=== PATIENT | female | born 1975 | race African-American/Black ===

== ENCOUNTER 2016-07-18 22:20 | Inpatient (IN) | payer MEDICAID, OTHER ==
[~2016-07-18] VITALS: Ht 172.7 cm; Wt 125.3 kg
[~2016-07-18 22:20] MED LIST: ACET325 PO; CITA20 PO; COMMODE 3:1; FERR324T4 PO; FURO20 PO; HYDR-3580 PO; KCL10 PO; KCL20 PO; NEUR100C PO; PROT40TA PO; RISP1 PO; THERM PO; TRAZ100T4 PO; WALKER ROLLING; WHEELCHAIR RENTAL RA
[2016-07-18 22:24] VITALS: BP 123/81; PULSE 110; RESP 18; TEMP 98; O2SAT 85
[2016-07-18 22:44] VITALS: O2SAT 99
[2016-07-18] MEDS ORDERED: methylPREDNISolone SOD SUCC 125 MG/2 ML VIAL IVP ONE (22:45)
[2016-07-18] MEDS ORDERED: RESP: ALBUTEROL 2.5 MG/IPRATROPIUM 0.5 MG NEB (SCH) INH (22:45)
[2016-07-18] MEDS ORDERED: SODIUM CHLORIDE 0.9% FLUSH 10 ML FLUSH IVF PRN (22:45)
--- NOTE | 2016-07-18 22:46 | PD ---
HPI Chief Complaint: Respiratory Symptoms Time Seen by Provider: 22:42 Travel History International Travel<30 days: No Contact w/Intl Traveler<30days: No Traveled to known affect area: No History of Present Illness HPI 41-year-old female that presents to the ED for evaluation of shortness of breath and recent diagnosis of pneumonia. Per patient he was diagnosed with pneumonia yesterday. Patient has a history of sarcoidosis and continues to smoke. Per patient today she got more short of breath and is what made her come here. Patient states that she has no pain but very short of breath. Ambulate he makes it worse. She denies any abdominal pain. She states compliance with the medications. Per patient she was started on Levaquin and prednisone. She has not used any inhalers or nebulizers. Allergy to penicillin and tramadol. Denies any sick contacts. Patient did not get the flu shot this year. Symptoms have been ongoing for a couple of days. PFSH Past Medical History Arthritis: No Asthma: No Autoimmune Disease: Yes ( SARCOIDOSIS) Blood Disorders: No Bipolar Disorder: Yes Anxiety: No Depression: No Heart Rhythm Problems: No Cancer: No Cardiovascular Problems: Yes High Cholesterol: No Chemotherapy: No Chest Pain: No Congestive Heart Failure: Yes COPD: No Cerebrovascular Accident: Yes Diabetes: No Diminished Hearing: No Endocrine: No GERD: Yes Genitourinary: No Hepatitis: No Hiatal Hernia: No Hypertension: Yes Immune Disorder: Yes Kidney Stones: No Medical other: Yes (LUPUS) Musculoskeletal: Yes Neurologic: No Psychiatric: Yes (Bipolar disorder) Reproductive: No Respiratory: Yes (Intersititial lung disease) Immunizations Current: No Migraines: No Pneumonia: Yes Radiation Therapy: No Renal Failure: No Schizophrenia: Yes Seizures: No Sickle Cell Disease: No Sleep Apnea: No Thyroid Disease: No Ulcer: No Tetanus Vaccination: Unknown Influenza Vaccination: No ?: Not LMP: 2 WEEKS AGO : 2 Para: 2 Tubal Ligation: Yes Past Surgical History Abdominal Surgery: No AICD: No Arteriovenous Shunt: No Cardiac Surgery: No Ear Surgery: No Endocrine Surgery: No Eye Surgery: No Genitourinary Surgery: No Gynecologic Surgery: Yes (Tubal ligation) Insulin Pump: No Joint Replacement: No Oral Surgery: Yes (Tongue biopsy) Pacemaker: No Thoracic Surgery: Yes (Eight lung wedge resection 2011, Bronchospy 05/19) Other Surgery: Yes (right lung biopsy /bronchoscopy ) Social History Alcohol Use: No Tobacco Use: Yes (1PPD) Substance Use: No Allergies-Medications (Allergen,Severity, Reaction): Coded Allergies: Penicillin (Verified Allergy, Intermediate, Nausea/Vomiting, 07/18/16) Tramadol (Verified Allergy, Unknown, 07/18/16) SHAKES *MDRO Multi-Drug Resistant Organism (Verified Adverse Reaction, Unknown, ) 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 Reported Meds & Prescriptions Reported Meds & Active Scripts Active Lasix 20 Mg Tab (Furosemide) 20 Mg Tab 20 Mg PO BID@09,18 Hydrocodone/Acetaminophen 7.5 mg/325 mg 1 Tab 1 Tab PO Q6H PRN Thera M Plus (Multivitamins/Minerals Therap) 1 Tab Tab 1 Tab PO DAILY Klor-Con 10 (Potassium Chloride) 10 Meq Tab 10 Meq PO DAILY Kcl 20 Meq Tab (Potassium Chloride) 20 Meq Tabcr 20 Meq PO Q12HR Protonix (Pantoprazole Sodium) 40 Mg Tab 40 Mg PO DAILY Risperdal (Risperidone) 1 Mg Tab 3 Mg PO HS Desyrel 100 Mg Tab (Trazodone Hcl) 100 Mg Tab 100 Mg PO HS Neurontin (Gabapentin) 100 Mg Cap 200 Mg PO BID Ferrous Sulfate 325 Mg Tab 325 Mg PO BID@,17 Celexa 20 Mg Tab (Citalopram Hydrobromide) 20 Mg Tab 20 Mg PO DAILY Commode 3:1 (Device) Device 1 Ea Walker Rolling (Device) Device 1 Ea Wheelchair Rental Removable Arms (Device) Device 1 Ea Tylenol (Acetaminophen) 325 Mg Tab 650 Mg PO Q4H PRN 30 Days Review of Systems Except as stated in HPI: all other systems reviewed are Neg Physical Exam Narrative GENERAL: SKIN: Warm and dry. HEAD: Atraumatic. Normocephalic. EYES: Pupils equal and round. No scleral icterus. No injection or drainage. ENT: No nasal bleeding or discharge. Mucous membranes pink and moist. Tongue is midline. No uvula deviation. NECK: Trachea midline. No JVD. CARDIOVASCULAR: Regular rate and rhythm. No murmurs, S3, S4. RESPIRATORY: No accessory muscle use. Wheezings heard on expiratory. Breath sounds equal bilaterally. GASTROINTESTINAL: Abdomen soft, non-tender, nondistended. Hepatic and splenic margins not palpable. MUSCULOSKELETAL: Extremities without clubbing, cyanosis, or edema. No obvious deformities. Full range of motion of the upper and lower extremities bilaterally. 2+ pulses bilaterally. NEUROLOGICAL: Awake and alert. No obvious cranial nerve deficits. Motor grossly within normal limits. Five out of 5 muscle strength in the arms and legs. Normal speech. PSYCHIATRIC: Appropriate mood and affect; insight and judgment normal. Data Data Last Documented VS Vital Signs Date Time Temp Pulse Resp B/P Pulse Ox O2 Delivery O2 Flow Rate FiO2 07/18/16 22:29 26 07/18/16 22:24 98.0 110 123/81 85 Orders Arterial Blood Gas (Abg) (07/18/16 22:40) Basic Metabolic Panel (Bmp) (07/18/16 22:40) Complete Blood Count With Diff (07/18/16 22:40) Chest, Single Ap (07/18/16 22:40) Ecg Monitoring (07/18/16 22:40) Iv Access Insert/Monitor (07/18/16 22:40) Oximetry (07/18/16 22:40) Oxygen Administration (07/18/16 22:40) Methylprednisolone So Succ Inj (Solumedr (07/18/16 22:45) Duoneb Q 15 Min X 3 Doses (07/18/16 22:45) Sodium Chloride 0.9% Flush (Ns Flush) (07/18/16 22:45) Blood Culture (07/18/16 22:40) Lactic Acid (07/18/16 22:40) MDM Medical Decision Making Medical Screen Exam Complete: Yes Emergency Medical Condition: Yes Medical Record Reviewed: Yes Differential Diagnosis Sarcoidosis versus pneumonia versus COPD exacerbation versus sepsis versus dyspnea Narrative Course 41-year-old female that presents to the ED for volition or shortness of breath. Patient was properly examined and was found to have signs and symptoms consistent appears to be respiratory distress. Patient's O2 are in the 80s without oxygen. With oxygen O2 in the 90s. Patient was given breathing treatments here. Chest x-ray and labs were ordered. Patient will be signed out to my attending pending disposition. Constantin Freeman July 18, 2016 22:46
[2016-07-18 22:49] VITALS: BP 142/96; PULSE 118; RESP 34
--- NOTE | 2016-07-18 22:49 | PD ---
Physical Exam Narrative General: The patient is a well-developed well-nourished female, short of breath on arrival with audible wheezing, conversational dyspnea, O2 saturations on room air in the 70s. Head and Neck exam: Head is normocephalic atraumatic. Eyes: EOMI, pupils are equal round and reactive to light. Nose: Midline septum with pink mucous membranes Mouth: Dentition unremarkable. Moist mucus membranes. Posterior oropharynx is not erythematous. No tonsillar hypertrophy. Uvula midline. Airway patent. Neck: No palpable lymphadenopathy. No nuchal rigidity. No thyromegaly. Cardiovascular: Sinus tachycardia in the 120s without murmurs, gallops, or rubs. No pulse deficit to the extremities and simultaneous auscultation and palpation of her radial artery. Lungs: Scattered rhonchi and upper airway transmission is noted. The patient has expiratory wheezes audible anteriorly and posteriorly. The patient has conversational dyspnea. The patient has accessory muscle use. No paroxysmal abdominal breathing. Abdomen: Soft, without tenderness to palpation in all 4 quadrants of the abdomen. No guarding, rebound, or rigidity. Normal bowel sounds are audible. No tenderness on palpation of McBurney's point. Extremities: No clubbing, cyanosis, or edema. 2+ pulses in all 4 extremities. No calf tenderness on palpation. Back: No costovertebral angle tenderness to palpation. Neurologic Exam: Grossly nonfocal. Skin Exam: No rash noted. Intact skin that is warm and dry. Data Data Last Documented VS Vital Signs Date Time Temp Pulse Resp B/P Pulse Ox O2 Delivery O2 Flow Rate FiO2 07/19/16 00:18 120 18 138/81 92 Nasal Cannula 4 07/18/16 22:24 98.0 Orders Arterial Blood Gas (Abg) (07/18/16 22:40) Basic Metabolic Panel (Bmp) (07/18/16 22:40) Complete Blood Count With Diff (07/18/16 22:40) Chest, Single Ap (07/18/16 22:40) Ecg Monitoring (07/18/16 22:40) Iv Access Insert/Monitor (07/18/16 22:40) Oximetry (07/18/16 22:40) Oxygen Administration (07/18/16 22:40) Methylprednisolone So Succ Inj (Solumedr (07/18/16 22:45) Albuterol-Ipratropium Neb (Duoneb Neb) (07/18/16 22:45) Sodium Chloride 0.9% Flush (Ns Flush) (07/18/16 22:45) Blood Culture (07/18/16 22:40) Lactic Acid (07/18/16 22:40) Aztreonam Inj (Azactam Inj) (07/18/16 23:09) Azithromycin Inj (Zithromax Inj) (07/18/16 23:09) Sodium Chlor 0.9% 1000 Ml Inj (Ns 1000 M (07/18/16 23:15) Magnesium Sulfate 1 Gm Premix (Magnesium (07/18/16 23:30) Sodium Chlor 0.9% 1000 Ml Inj (Ns 1000 M (07/19/16 00:00) Albuterol Neb (Albuterol Neb) (07/19/16 00:15) Albuterol-Ipratropium Neb (Duoneb Neb) (07/19/16 04:00) Admit To Inpatient (07/19/16 ) Vital Signs (Adult) Q4H (07/19/16 00:16) Activity Oob With Assistance (07/19/16 00:16) Garment Manufacturer / Telemetry .CONTINUOUS (07/19/16 00:16) Intake + Output DAVIS.QSHIFT (07/19/16 00:16) Diet Heart Healthy (07/19/16 Breakfast) Sodium Chloride 0.9% Flush (Ns Flush) (07/19/16 00:30) Sodium Chloride 0.9% Flush (Ns Flush) (07/19/16 09:00) Basic Metabolic Panel (Bmp) (07/19/16 06:00) Complete Blood Count With Diff (07/19/16 06:00) Naloxone Inj (Narcan Inj) (07/19/16 00:30) Inpatient Certification (07/19/16 ) Admit Order (Ed Use Only) (07/19/16 00:21) Albuterol-Ipratropium Neb (Duoneb Neb) (07/19/16 04:00) Albuterol-Ipratropium Neb (Duoneb Neb) (07/19/16 00:30) Labs Laboratory Tests Test 07/18/16 07/18/16 22:45 22:49 White Blood Count 24.7 TH/MM3 Red Blood Count 5.01 MIL/MM3 Hemoglobin 13.4 GM/DL Hematocrit 41.0 % Mean Corpuscular Volume 81.8 FL Mean Corpuscular Hemoglobin 26.6 PG Mean Corpuscular Hemoglobin 32.6 % Concent Red Cell Distribution Width 16.3 % Platelet Count 446 TH/MM3 Mean Platelet Volume 8.0 FL Neutrophils (%) (Auto) 81.1 % Lymphocytes (%) (Auto) 11.2 % Monocytes (%) (Auto) 7.4 % Eosinophils (%) (Auto) 0.1 % Basophils (%) (Auto) 0.2 % Neutrophils # (Auto) 20.1 TH/MM3 Lymphocytes # (Auto) 2.8 TH/MM3 Monocytes # (Auto) 1.8 TH/MM3 Eosinophils # (Auto) 0.0 TH/MM3 Basophils # (Auto) 0.1 TH/MM3 CBC Comment AUTO DIFF Differential Total Cells 100 Counted Neutrophils % (Manual) 72 % Band Neutrophils % 6 % Lymphocytes % 12 % Monocytes % 9 % Neutrophils # (Manual) 19.5 TH/MM3 Metamyelocytes 1 % Differential Comment FINAL DIFF MANUAL Atypical Lymphocytes % Toxic Vacuolation PRESENT Platelet Estimate HIGH Platelet Morphology Comment NORMAL Red Cell Morphology Comment NORMAL Sodium Level 137 MEQ/L Potassium Level 3.8 MEQ/L Chloride Level 99 MEQ/L Carbon Dioxide Level 29.5 MEQ/L Anion Gap 9 MEQ/L Blood Urea Nitrogen 19 MG/DL Creatinine 1.63 MG/DL Estimat Glomerular Filtration 42 ML/MIN Rate Random Glucose 143 MG/DL Lactic Acid Level 2.0 mmol/L Calcium Level 8.6 MG/DL Blood Gas Puncture Site RT RADIAL Blood Gas Patient Temperature 98.6 Blood Gas HCO3 27 mmol/L Blood Gas Base Excess 1.3 mmol/L Blood Gas Oxygen Saturation 94 % Arterial Blood pH 7.29 Arterial Blood Partial 59 mmHg Pressure CO2 Arterial Blood Partial 123 mmHG Pressure O2 Arterial Blood Oxygen Content 17.5 Vol % Arterial Blood 4.7 % Carboxyhemoglobin Arterial Blood Methemoglobin 0.6 % Blood Gas Hemoglobin 13.2 G/DL Oxygen Delivery Device NASAL CANNULA Blood Gas Liter Flow 4 L/M [facility] Medical Record Reviewed: Yes Supervised Visit with JUMA: No Interpretation(s) Last Impressions Chest X-Ray 07/18/16 2240 Signed Impressions: Service Date/Time: Monday, July 18, 2016 23:11 - CONCLUSION: No significant change in the bilateral patchy pulmonary opacities. Horacio Simpson MD Differential Diagnosis Asthma exacerbation, versus pneumonia, versus new-onset congestive heart failure , versus ARDS, versus sepsis. Narrative Course During the course of the patients emergency department visit, the patients history, examination, and differential diagnosis were reviewed with the patient. The patient had IV access obtained and blood work sent for analysis. The patient was placed on a ekg monitor tech with oximetry and blood pressure monitoring. An EKG was done on arrival. The patient's EKG shows a sinus tachycardia with occasional premature ventricular contractions, no acute ST segment elevation or depression, T waves are inverted in V1, V2. The patient's initial O2 saturation on room air out in triage was in the 70s. The patient was placed on nasal cannula O2 and by the time she arrived back in the room her O2 saturation was 95%. The patient was initially evaluated by Constantin, the physician paraprofessional education assistant. Please see his complete history and physical. The patient 's case was checked out to me at the conclusion of his shift. The patient is a 41-year-old female who reports to me that she's had a history of cough, congestion, shortness of breath that began 2 days ago. She went to a local urgent care center and was given a prescription for pro-air, a cough medication , and Levaquin. She reports that she started the Levaquin yesterday. The patient reports that the shortness of breath was worsening that she came in. She reports on review of systems that she also had nausea and vomiting 4 days ago 4, diarrhea times to 4 days ago. She denies having any abdominal pain. The patient's medical history is complicated by having according to the record a history of asthma, COPD, sarcoidosis, history of respiratory failure with tracheostomy in 2016. The patient was initially provided DuoNeb nebs 3, Solu-Medrol 125 mg IV, Azactam, and azithromycin for antibiotic coverage for a suspected pulmonary source. The patients laboratory studies were reviewed and remarkable for white count 24.7, hemoglobin 13.4, platelets 446 with 72 neutrophils, 6 bands, 12 lymphocytes, monocytes 9, toxic vacuolation present. Basic metabolic profile is remarkable for BUN of 19, creatinine 1.3, glucose 143, lactic acid 2.0, ABG reveals a pH of 7.29, PCO2 59, PO2 123, carboxyhemoglobin 4.7, bicarbonate 27. Radiology studies were reviewed and remarkable for a chest x-ray that shows no significant change compared to previously with bilateral patchy pulmonary opacities noted. A second liter of normal saline IV fluids had been started on the patient, however further review of the patient's record reveals a history of a diastolic heart failure and an episode of pulmonary edema during a hospitalization previously. Therefore, the patient's second liter was stopped. The patient was reexamined and was given an albuterol nebulizer treatment for recurrent wheezing. The patients results were discussed with the patient, including the plan of care. I explained that further testing and/ or monitoring is indicated based on the patients history, examination, and/ or laboratory findings. Therefore, I recommended admission for additional evaluation. The patient expressed understanding and was agreeable with this plan. The patient was admitted to the hospital in guarded condition and [facility] Critical Care Narrative Aggregate critical care time was 40 minutes. Time to perform other separately billable procedures was not included in the critical care time. My time did not include minutes spent treating any other patients simultaneously or on activities that did not directly contribute to the patient's treatment. The services I provided to this patient were to treat and/or prevent clinically significant deterioration that could result in: Respiratory failure, versus cardiovascular collapse, versus cardiac arrhythmia I provided critical care services requiring my management, as noted below: Chart data review, documentation time, medication orders and management, vital sign assessments/reviewing monitor data, ordering and reviewing lab tests, ordering and interpreting/reviewing x-rays and diagnostic studies, care of the patient and discussion of the patient with the admitting physicians. Sepsis Criteria SIRS Criteria (2 or more): Heart rate over 90, WBC > 55208, < 4000 or > 10% bands Sepsis Criteria (SIRS+source): Infect source susp/known Criteria Outcome: Meets SIRS criteria, Meets sepsis criteria Diagnosis Primary Impression: Asthma exacerbation Additional Impressions: Sepsis Qualified Code: A41.9 - Sepsis, due to unspecified organism Pneumonia Qualified Code: J18.9 - Pneumonia of both lungs due to infectious organism, unspecified part of lung Admitting Information Admitting Physician Requests: Admit Caity Yanez MD July 18, 2016 22:49
[2016-07-18 23:00] LABS: BLOOD GAS BASE EXCESS 1.3 mmol/L (-2-2); BLOOD GAS CARBOXYHEMOGLOBIN 4.7 % (0-4); BLOOD GAS HCO3 27 mmol/L (22-26); BLOOD GAS METHEMOGLOBIN 0.6 % (0-2); BLOOD GAS O2 HGB SATURATION 94 % (90-100); BLOOD GAS OXYGEN CONTENT 17.5 Vol % (12.0-20.0); BLOOD GAS PCO2 59 mmHg (38-42); BLOOD GAS PO2 123 mmHG (61-120); BLOOD GAS TOTAL HGB 13.2 G/DL (12.0-16.0); TEMP CORR TO 98.6
[2016-07-18 23:01] LABS: DRAW SITE RT RADIAL; LITER FLOW 4 L/M; NUMBER OF ARTERIAL PUNCTURES 1; OXYGEN DEVICE NASAL CANNULA; STAT YES; ULNAR PULSE PRESENT
[2016-07-18 23:01] LABS: AUTOMATED NEUTROPHIL # 20.1 TH/MM3 (1.8-7.7); BASOPHIL # 0.1 TH/MM3 (0-0.2); BASOPHIL % 0.2 % (0.0-2.0); EOSINOPHIL % 0.1 % (0.0-4.0); LYMPH % 11.2 % (9.0-44.0); LYMPHOCYTE # 2.8 TH/MM3 (1.0-4.8); MEAN CELL VOLUME 81.8 FL (80.0-100.0); MEAN CORPUSCULAR HEMOGLOBIN 26.6 PG (27.0-34.0); MEAN CORPUSCULAR HGB CONC 32.6 % (32.0-36.0); MONO % 7.4 % (0.0-8.0); NEUT % 81.1 % (16.0-70.0); PLATELET COUNT 446 TH/MM3 (150-450); RED BLOOD COUNT 5.01 MIL/MM3 (4.00-5.30); RED CELL DISTRIBUTION WIDTH 16.3 % (11.6-17.2); WHITE BLOOD COUNT 24.7 TH/MM3 (4.0-11.0)
[2016-07-18 23:05] LABS: CRITICAL VALUE YES
[2016-07-18] MEDS ORDERED: AZITHROMYCIN INJ 500 MG in SODIUM CHLOR 0.9% 250 ML INJ 250 ML IV STA (23:09)
[2016-07-18] MEDS ORDERED: AZTREONAM INJ 2,000 MG in SODIUM CHLORIDE 0.9% INJ 100 ML IV STA (23:09)
[2016-07-18] MEDS ORDERED: SODIUM CHLOR 0.9% 1000 ML INJ 1,000 ML IV ONE (23:15)
[2016-07-18 23:16] LABS: BICARBONATE 29.5 MEQ/L (21.0-32.0); POTASSIUM 3.8 MEQ/L (3.5-5.1)
--- NOTE | 2016-07-18 23:29 | RADRPT ---
EXAM DATE/TIME: 07/18/2016 23:11 [place] COMPARISON: CHEST SINGLE AP, August 05, 2015, 8:29. INDICATIONS : Shortness of breath. Followup abnormal chest x-ray with bilateral pulmonary opacities. MEDICAL HISTORY : None. SURGICAL HISTORY : None. ENCOUNTER: Initial ACUITY: 1 day PAIN SCORE: 0/10 LOCATION: Bilateral chest FINDINGS: A single AP erect portable view of the chest was obtained and again demonstrates hazy perihilar and b ibasilar opacities without significant change. The heart size is at the upper limits of normal. There is no visualized effusion. Next the costophrenic angles are cut off the exam. The bony thorax remain s unremarkable. CONCLUSION: No significant change in the bilateral patchy pulmonary opacities. Horacio Simpson MD on July 18, 2016 at 23:26 Board Certified Radiologist. This report was verified electronically.
[2016-07-18] MEDS ORDERED: MAGNESIUM SULFATE 1 GM PREMIX 100 ML IV ONE (23:30)
[2016-07-18 23:32] LABS: HEMO FLAGS AUTO DIFF
[2016-07-18 23:35] LABS: BANDS 6 % (0-6); METAMYELOCYTES 1 % (0-1); NEUTROPHIL # MANUAL DIFF 19.5 TH/MM3 (1.8-7.7); PLATELET ESTIMATE SMEAR HIGH (NORMAL); POLYS (SEG NEUTROPHILS) 72 % (16-70); SCAN/DIFF FINAL DIFF MANUAL; WBC DIFF SAMPLE 100
[2016-07-18 23:36] LABS: PLATELET MORPHOLOGY NORMAL (NORMAL); TOXIC VACUOLATION PRESENT (NONE SEEN)
[2016-07-19] VITALS (16 sets, daily range): BP systolic 116–162; BP diastolic 55–96; PULSE 77–126; RESP 18–33; TEMP 97.4–98.5; O2SAT 90–100
[2016-07-19] MEDS ORDERED: SODIUM CHLOR 0.9% 1000 ML INJ 1,000 ML IV ONE
[2016-07-19] MEDS ORDERED: RESP: ALBUTEROL 2.5 MG/3 ML NEB (SCH) NEB ONE (00:15)
[2016-07-19] MEDS ORDERED: NALOXONE HCL 0.4 MG/ML AMP IV PRN (00:30)
[2016-07-19] MEDS ORDERED: RESP: ALBUTEROL 2.5 MG/IPRATROPIUM 0.5 MG NEB (PRN) NEB ×2 (00:30→09:45)
[2016-07-19] MEDS ORDERED: SODIUM CHLORIDE 0.9% FLUSH 10 ML FLUSH IV FLUSH PRN (00:30)
[2016-07-19] MEDS ORDERED: CHLORHEXIDINE GLUCONATE 2 % 1 PACK (2 CLOTHS) TOP PRN (02:00)
[2016-07-19] MEDS ORDERED: MISCELLANEOUS NURSING INFORMATION XX SCH (02:00)
[2016-07-19] MEDS: CHLORHEXIDINE GLUCONATE 2 % 1 PACK (2 CLOTHS) TOP SCH (03:48)
[2016-07-19] MEDS ORDERED: RESP: ALBUTEROL 2.5 MG/IPRATROPIUM 0.5 MG NEB (SCH) NEB ×2 (04:00)
--- NOTE | 2016-07-19 06:42 | HHI.HP ---
HPI Service [facility] Primary Care Physician Unknown Admission Diagnosis Asthma exacerbation, pneumonia Diagnoses: Chief Complaint: cough, short of breath Travel History International Travel<30 Days: No Contact w/Intl Traveler <30 Da: No Traveled to Known Affected Are: No History of Present Illness History from patient, ER physician communication, and review of medical records. Patient reported that she came to the hospital because she has been coughing yesterday quite a lot. States that she was able to bring up some sputum which was brownish in color. Also reports a fever since Monday. She stated that [facility] and was prescribed antibiotic and steroids. She thinks the name is azithromycin and prednisone. However per records, it seems that she was prescribed Levaquin with prednisone. She reports that despite taking these medications, she continued to have persistent cough and yesterday she was having such bad coughing fits that she decided to come to hospital. She reports she's been homeless. She lives with her mother, her son, and a friend at a motel. She arrives to the emergency room by private vehicle. Upon arrival, patient was found to be hypoxic with O2 sat in the 70s on room air. Patient admits that she has not been taking her medications since discharge from hospital because of her being homeless. She reports she does not take any diuretics. Apart from the above, patient denies any urinary burning or pain on urination. denies any blood in her stool or in her urine. 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 Grade 1 diastolic heart failure Past Surgical History VATS with right lung wedge resection in February 2012 Bilateral tubal ligation Reported Medications Medications list on EMRreviewed Allergies: Coded Allergies: Penicillin (Verified Allergy, Intermediate, Nausea/Vomiting, 07/18/16) Tramadol (Verified Allergy, Unknown, 07/18/16) SHAKES *MDRO Multi-Drug Resistant Organism (Verified Adverse Reaction, Unknown, ) 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0 110 18 123/81 85 Physical Exam GENERAL: This is a well-nourished, well-developed patient, with audible wheezing from a distance lying in bed. SKIN: No rashes, ecchymoses or lesions. Cool and dry. HEAD: Atraumatic. Normocephalic. No temporal or scalp tenderness. EYES: No scleral icterus. No injection or drainage. Proptosis ENT: Nose without bleeding, purulent drainage or septal hematoma. Airway patent. NECK: Trachea midline. No JVD Supple, nontender, no meningeal signs. CARDIOVASCULAR: Tachycardic around 120, regular rhythm without murmurs, gallops , or rubs. RESPIRATORY: Bilateral expiratory wheezing. Equal air entry bilaterally GASTROINTESTINAL: Abdomen soft, non-tender, nondistended. No guarding. Obese. MUSCULOSKELETAL: Extremities without clubbing, cyanosis, or edema. No calf tenderness. NEUROLOGICAL: Awake and alert. Motor and sensory grossly within normal limits. Normal speech. Laboratory Laboratory Tests Test 07/18/16 07/18/16 07/19/16 22:45 22:49 03:15 White Blood Count 24.7 Red Blood Count 5.01 Hemoglobin 13.4 Hematocrit 41.0 Mean Corpuscular Volume 81.8 Mean Corpuscular Hemoglobin 26.6 Mean Corpuscular Hemoglobin 32.6 Concent Red Cell Distribution Width 16.3 Platelet Count 446 Mean Platelet Volume 8.0 Neutrophils (%) (Auto) 81.1 Lymphocytes (%) (Auto) 11.2 Monocytes (%) (Auto) 7.4 Eosinophils (%) (Auto) 0.1 Basophils (%) (Auto) 0.2 Neutrophils # (Auto) 20.1 Lymphocytes # (Auto) 2.8 Monocytes # (Auto) 1.8 Eosinophils # (Auto) 0.0 Basophils # (Auto) 0.1 CBC Comment AUTO DIFF Differential Total Cells 100 Counted Neutrophils % (Manual) 72 Band Neutrophils % 6 Lymphocytes % 12 Monocytes % 9 Neutrophils # (Manual) 19.5 Metamyelocytes 1 Differential Comment FINAL DIFF MANUAL Atypical Lymphocytes Toxic Vacuolation PRESENT Platelet Estimate HIGH Platelet Morphology Comment NORMAL Red Cell Morphology Comment NORMAL Sodium Level 137 Potassium Level 3.8 Chloride Level 99 Carbon Dioxide Level 29.5 Anion Gap 9 Blood Urea Nitrogen 19 Creatinine 1.63 Estimat Glomerular Filtration 42 Rate Random Glucose 143 Lactic Acid Level 2.0 Calcium Level 8.6 Blood Gas Puncture Site RT RADIAL Blood Gas Patient Temperature 98.6 Blood Gas HCO3 27 Blood Gas Base Excess 1.3 Blood Gas Oxygen Saturation 94 Arterial Blood pH 7.29 Arterial Blood Partial 59 Pressure CO2 Arterial Blood Partial 123 Pressure O2 Arterial Blood Oxygen Content 17.5 Arterial Blood 4.7 Carboxyhemoglobin Arterial Blood Methemoglobin 0.6 Blood Gas Hemoglobin 13.2 Oxygen Delivery Device NASAL CANNULA Blood Gas Liter Flow 4 Nasal Screen MRSA (PCR) MRSA NOT DETECTED Date/Time Procedure Status Source Growth 07/18/16 22:45 Aerobic Blood Culture Received Blood Peripheral Pending 07/18/16 22:45 Anaerobic Blood Culture Received Blood Peripheral Pending Result Diagram: 07/18/16224407/18/162244 Imaging Last 48 hours Impressions Chest X-Ray 07/18/162239 Signed Impressions: Service Date/Time: Monday, July 18, 2016 23:11 - CONCLUSION: No significant change in the bilateral patchy pulmonary opacities. Horacio Simpson MD ABG Test 07/18/16 22:49 Blood Gas HCO3 27 H mmol/L Blood Gas Base Excess 1.3 mmol/L Blood Gas Oxygen Saturation 94 % Arterial Blood pH 7.29 *L Arterial Blood Partial 59 *H mmHg Pressure CO2 Arterial Blood Partial 123 H mmHG Pressure O2 Arterial Blood Oxygen Content 17.5 Vol % Arterial Blood 4.7 H % Carboxyhemoglobin Arterial Blood Methemoglobin 0.6 % Blood Gas Hemoglobin 13.2 G/DL Oxygen Delivery Device NASAL CANNULA Blood Gas Liter Flow 4 L/M Assessment and Plan Assessment and Plan Impression: COPD exacerbation Pneumonia acute on chronic diastolic heart failure/ fluid overload failed outpatient pneumonia treatment- with prednisone and azithromycin per patient (however, notes reveal levaquin, thus unsure) significant hypoxic respiratory failure - o2 sat in 70s on RA upon arrival leukocytosis with left shift- from infection/ steroids use Tachycardiasecondary to acute infection/distress hx of respiratory failure with tracheostomy in 2015 Interstitial lung disease Sarcoidosis Hypertension Morbid obesity Bipolar disorder GERD COPD 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 Believe pt's hypoxia and respiratory failure is mostly from pneumonia/ copd, but got fluid overloaded in ER after some fluid administration (this was actually stopped) Replace potassium 40 mEq by mouth one dose now. Patient also was not taking her Lasix doses at home. May need steroids IV if her wheezing is not improved. At present, I have held off steroids for the morning as patient is in acute fluid overload. Patient is also somewhat drowsy although is able to answer questions appropriately. She does have compensated CO2 retention on her initial ABG. We'll repeat ABG to make sure acidosis is not worsening. Watch for CO2 retention. DVT prophylaxiswith heparin. GI prophylaxis on pantoprazole. Discussed Condition With Patient, ER physician, patient's nurse Physician Certification 2 Midnight Certification Type: Admission for Inpatient Services Order for Inpatient Services The services are ordered in accordance with Medicare regulations or non- Medicare payer requirements, as applicable. In the case of services not specified as inpatient-only, they are appropriately provided as inpatient services in accordance with the 2-midnight benchmark. Estimated LOS (days): 3 days is the estimated time the patient will need to remain in the hospital, assuming treatment plan goals are met and no additional complications. Post-Hospital Plan: Home Yoanna Boyle MD July 19, 2016 06:42
[2016-07-19] MEDS ORDERED: FUROSEMIDE 40 MG/4 ML VIAL IV PUSH ONE (06:45)
[2016-07-19] MEDS ORDERED: POTASSIUM CHLORIDE 20 MEQ CONTROLLED RELEASE TAB PO ONE (06:45)
[2016-07-19] MEDS ORDERED: RESP: IPRATROPIUM 0.5 MG/2.5 ML NEB NEB PRN (07:15)
[2016-07-19 08:20] LABS: BLOOD GAS BASE EXCESS 2.4 mmol/L (-2-2); BLOOD GAS CARBOXYHEMOGLOBIN 2.9 % (0-4); BLOOD GAS HCO3 28 mmol/L (22-26); BLOOD GAS METHEMOGLOBIN 1.1 % (0-2); BLOOD GAS O2 HGB SATURATION 90 % (90-100); BLOOD GAS OXYGEN CONTENT 17.1 Vol % (12.0-20.0); BLOOD GAS PCO2 57 mmHg (38-42); BLOOD GAS PO2 70 mmHg (61-120); BLOOD GAS TOTAL HGB 13.6 G/DL (12.0-16.0); TEMP CORR TO 98.6
[2016-07-19 08:21] LABS: CRITICAL VALUE YES; DRAW SITE RT RADIAL; FIO2 30 %; LITER FLOW 2.5 L/M; NUMBER OF ARTERIAL PUNCTURES 1; OXYGEN DEVICE NASAL CANNULA; STAT YES; ULNAR PULSE PRESENT
[2016-07-19] MEDS ORDERED: FUROSEMIDE 40 MG/4 ML VIAL IV PUSH SCH (09:00)
[2016-07-19] MEDS: SODIUM CHLORIDE 0.9% FLUSH 10 ML FLUSH IV FLUSH SCH ×2 (09:47→22:01)
[2016-07-19] MEDS: PANTOPRAZOLE SOD 40 MG DELAYED RELEASE TAB PO SCH (09:47)
[2016-07-19] MEDS: methylPREDNISolone SOD SUCC 40 MG/1 ML VIAL IV PUSH SCH ×3 (09:51→22:00)
[2016-07-19] MEDS ORDERED: RESP: IPRATROPIUM 0.5 MG/2.5 ML NEB NEB SCH (10:00)
[2016-07-19 10:52] LABS: AUTOMATED NEUTROPHIL # 14.8 TH/MM3 (1.8-7.7); BASOPHIL # 0.1 TH/MM3 (0-0.2); BASOPHIL % 0.5 % (0.0-2.0); HEMATOCRIT 41.5 % (35.0-46.0); LYMPH % 7.3 % (9.0-44.0); LYMPHOCYTE # 1.3 TH/MM3 (1.0-4.8); MEAN CORPUSCULAR HEMOGLOBIN 26.1 PG (27.0-34.0); MEAN CORPUSCULAR HGB CONC 31.9 % (32.0-36.0); MONO % 6.3 % (0.0-8.0); NEUT % 85.9 % (16.0-70.0); PLATELET COUNT 422 TH/MM3 (150-450); RED BLOOD COUNT 5.06 MIL/MM3 (4.00-5.30); RED CELL DISTRIBUTION WIDTH 15.9 % (11.6-17.2); WHITE BLOOD COUNT 17.2 TH/MM3 (4.0-11.0)
[2016-07-19 10:53] LABS: HEMO FLAGS AUTO DIFF
[2016-07-19 11:04] LABS: BICARBONATE 34.4 MEQ/L (21.0-32.0)
[2016-07-19] MEDS: AZTREONAM INJ 2,000 MG in SODIUM CHLORIDE 0.9% INJ 100 ML IV SCH ×2 (11:09→23:00)
[2016-07-19 11:25] LABS: TOXIC VACUOLATION PRESENT (NONE SEEN)
[2016-07-19 11:26] LABS: PLATELET ESTIMATE SMEAR HIGH (NORMAL); PLATELET MORPHOLOGY NORMAL (NORMAL); SCAN/DIFF AUTO DIFF CONFIRMED
--- NOTE | 2016-07-19 13:31 | HHI.PR ---
Addendum to Inpatient Note Addendum Reason: Additional Documentation Additional Information The patient was resting comfortably in bed. She was about to eat lunch. She says she does not follow-up with a lung doctor. She says she is homeless and has nowhere to live. She does say she has been taking her medications. ABG with elevated CO2. BiPAP was ordered. A pulmonology consult was placed. Continue antibiotics. Continue diuresis. Check a BNP. Discussed with nursing. Physical therapy and case management evaluations. Horacio Kirkpatrick DO July 19, 2016 13:31
[2016-07-19] MEDS: RESP: ALBUTEROL 2.5 MG/IPRATROPIUM 0.5 MG NEB (SCH) NEB ×2 (13:55→20:16)
[2016-07-19] MEDS: HEPARIN SODIUM - SQ 10,000 UNITS/ML VIAL SQ SCH ×2 (15:04→22:00)
--- NOTE | 2016-07-19 15:23 | EKG ---
Date Performed: 07/18/2016 Time Performed: 22:39:11 PTAGE: 41 years EKG: SINUS TACHYCARDIA WITH OCCASIONAL VENTRICULAR PREMATURE COMPLEXES BORDERLINE RIGHT AXIS DEV IATION NONSPECIFIC T-WAVE ABNORMALITY ABNORMAL RHYTHM ECG Compared to the PREVIOUS TRACING sinus rate has increased, PVCs are now seen PREVIOUS TRACIN06/24/15 DOCTOR: Carlos Vera Interpretating Date/Time 07/19/2016 15:21:35
[2016-07-19] MEDS ORDERED: ACETAMINOPHEN 325 MG TAB PO PRN (17:45)
[2016-07-19] MEDS ORDERED: risperiDONE 3 MG TAB PO SCH (21:00)
[2016-07-19] MEDS: traZODone HCL 50 MG TAB PO SCH (21:00)
[2016-07-20] VITALS (12 sets, daily range): BP systolic 103–131; BP diastolic 60–84; PULSE 99–127; RESP 16–30; TEMP 96.9–98.9; O2SAT 92–100
[2016-07-20] MEDS: CHLORHEXIDINE GLUCONATE 2 % 1 PACK (2 CLOTHS) TOP SCH (04:00)
[2016-07-20] MEDS: methylPREDNISolone SOD SUCC 40 MG/1 ML VIAL IV PUSH SCH ×3 (05:53→20:38)
[2016-07-20] MEDS: HEPARIN SODIUM - SQ 10,000 UNITS/ML VIAL SQ SCH ×3 (05:53→20:38)
[2016-07-20 06:12] LABS: HEMATOCRIT 41.1 % (35.0-46.0); MEAN CELL VOLUME 82.4 FL (80.0-100.0); MEAN CORPUSCULAR HGB CONC 31.6 % (32.0-36.0); PLATELET COUNT 404 TH/MM3 (150-450); RED BLOOD COUNT 4.99 MIL/MM3 (4.00-5.30); RED CELL DISTRIBUTION WIDTH 15.9 % (11.6-17.2); REVIEW FLAG FINAL; WHITE BLOOD COUNT 17.7 TH/MM3 (4.0-11.0)
[2016-07-20 06:32] LABS: ALT (GPT) 15 U/L (10-53); ANION GAP 6 MEQ/L (5-15); AST (GOT) 12 U/L (15-37); BICARBONATE 33.5 MEQ/L (21.0-32.0); BLOOD UREA NITROGEN 25 MG/DL (7-18); CHLORIDE 96 MEQ/L (98-107); GLOMERULAR FILTRATION RATE 53 ML/MIN (>89); MAGNESIUM 2.4 MG/DL (1.5-2.5); POTASSIUM 4.3 MEQ/L (3.5-5.1); SODIUM (NA) 135 MEQ/L (136-145)
[2016-07-20 06:33] LABS: ALKALINE PHOSPHATASE 99 U/L (45-117); INDIRECT BILIRUBIN 0.1 MG/DL (0.0-0.8); TOTAL BILIRUBIN ADULT 0.2 MG/DL (0.2-1.0)
[2016-07-20] MEDS: SODIUM CHLORIDE 0.9% FLUSH 10 ML FLUSH IV FLUSH SCH ×2 (07:36→20:39)
[2016-07-20] MEDS: PANTOPRAZOLE SOD 40 MG DELAYED RELEASE TAB PO SCH (07:36)
[2016-07-20] MEDS: RESP: ALBUTEROL 2.5 MG/IPRATROPIUM 0.5 MG NEB (SCH) NEB ×3 (07:49→18:58)
--- NOTE | 2016-07-20 10:14 | MB ---
cc: [facility] PRICE DATE OF CONSULTATION 07/19/[address] Boyle. REASON FOR CONSULTATION Pulmonary management. HISTORY OF THE PRESENT ILLNESS Ms. Young is a 40-year-old morbidly obese female with a history of sarcoidosis status post VATS. She has been admitted in this hospital before. She has a respiratory failure, bilateral pneumonia. She required tracheostomy tube. She has encephalopathy. She also had fungal pneumonia. She was started with voriconazole and then treated with amphotericin B. The patient had a tracheostomy tube which was reversed. This time she comes back with worsening of her shortness breath, cough and congestion and shortness of breath. Did not have any fever or chills. No night sweats. The patient was worked up in the hospital. IMAGING She had a chest x-ray done which showed bilateral infiltrates. LABORATORY DATA Her WBC count is 17.2, hemoglobin 13.2, hematocrit 41.5, MCV 82, platelet count 422. Her sodium 139, potassium 4.0, chloride 99, CO2 34, BUN 18, creatinine 1.50. Blood gas pH 7.32, pCO2 57, pO2 70, bicarb 28 on nasal cannula. Her blood cultures so far are negative. PAST MEDICAL HISTORY Significant for: 1. A history of sarcoidosis. 2. Hypertension. 3. Morbid obesity. 4. History of VATS. 5. Bipolar disorder. 6. Gastroesophageal reflux disease. 7. History of tubal ligation. 8. History of fungal infection with cavity lesion. She was treated with voriconazole and amphotericin B. 9. History of tracheostomy which was reversed. MEDICATIONS She is currently takin. Risperdal 3 milligrams at night time. 2. Trazodone 50 milligrams at night time. 3. Oxycodone for pain. 4. Heparin 5000 units q.8h. 5. Albuterol/ Atrovent nebulizer treatment. 6. Aztreonam 2 grams q.12h. 7. Solu-Medrol 40 milligrams q.8h. 8. Protonix 40 milligrams a day. 9. Atrovent nebulizer treatment. ALLERGIES SHE IS ALLERGIC TO PENICILLIN AND TRAMADOL. SOCIAL HISTORY She is single. has history of smoking, continues to smoke one pack of cigarettes per day. Drinks socially. Denies any drug use. She worked at [employer]. She is not working anymore. FAMILY HISTORY She has two children. REVIEW OF SYSTEMS She normally is up, around and active. She used to use oxygen before which then she got better and oxygen was discontinued. No malignancy. No DVT or pulmonary embolism. No seizure, stroke or epilepsy. PHYSICAL EXAMINATION GENERAL: Obese female, mild short of breath. Not in any acute distress. VITAL SIGNS: Blood pressure 162/63, heart rate 93, respirations 20, temperature 98.4. HEENT: Pupils are equal and reactive to light. Oral mucosa and nasal mucosa normal. NECK: Supple. JVP not raised. CHEST: Air entry equal bilaterally. Has bilateral expiratory rhonchi. CARDIOVASCULAR: S1-S2 normal. ABDOMEN: Benign. EXTREMITIES: No edema. IMPRESSION 1. Exacerbation of COPD. 2. hypercapnic respiratory insufficiency, improving. 3. Bilateral infiltrate possible underlying interstitial infiltrates or community-acquired pneumonia. 4. Sarcoidosis. 5. History of VATS. 6. History of respiratory failure with fungal infection. 7. Nicotine use. PLAN I advised her strongly to quit smoking. We will give her IV antibiotic and Solu-Medrol, aerosol treatments. Supplemental oxygen and use C-PAP as needed. Monitor her course. Further treatment will depend on the course in the hospital. Thank you Dr. Boyle for this consultation. MD LEVY Burnett/DANIAL /7:57 PM /9:55 AM
--- NOTE | 2016-07-20 10:27 | HHI.PR ---
Subjective Remarks The pt was resting comfortably. She said her breathing was better. She said she swells up with steroids. She says she is always lethargic and she believes it's secondary to her psych meds which were recently increased. Discussed with nursing. Objective Vitals Vital Signs Date Time Temp Pulse Resp B/P Pulse Ox O2 Delivery O2 Flow Rate FiO2 07/20/16 08:00 98.3 111 20 122/60 92 07/20/16 08:00 111 07/20/16 07:58 94 Nasal Cannula 4.00 07/20/16 06:00 127 07/20/16 04:00 105 07/20/16 04:00 97.9 105 24 103/75 95 07/20/16 02:00 99 07/20/16 00:00 109 07/20/16 00:00 97.8 109 30 116/74 97 07/19/16 22:00 109 07/19/16 20:17 100 Nasal Cannula 4.00 07/19/16 20:00 98.1 112 32 119/64 100 07/19/16 20:00 112 07/19/16 18:00 99 07/19/16 16:00 98.4 93 22 162/63 99 07/19/16 16:00 93 07/19/16 14:00 90 07/19/16 12:00 77 07/19/16 12:00 98.5 77 20 116/55 99 I/O 07/19/16 07/19/16 07/19/16 07/20/16 07/20/16 07/20/16 07:00 15:00 23:00 07:00 15:00 23:00 Intake Total 460 ml 800 ml 605 ml 760 ml Output Total 350 ml 2100 ml 600 ml 400 ml Balance 110 ml -1300 ml 5 ml 360 ml Intake Oral 460 ml 650 ml 500 ml 760 ml IV Total 150 ml 105 ml Output Urine Total 350 ml 2100 ml 600 ml 400 ml # Voids 1 # Bowel Movements 0 Result Diagram: 07/20/16 0539 07/20/16 0539 Imaging Last Impressions Chest X-Ray 07/18/16 7020 Signed Impressions: Service Date/Time: Monday, July 18, 2016 23:11 - CONCLUSION: No significant change in the bilateral patchy pulmonary opacities. Horacio Simpson MD Objective Remarks GENERAL: This is a well-nourished, well-developed patient, resting in bed. SKIN: No rashes, ecchymoses or lesions. Cool and dry. HEAD: Atraumatic. Normocephalic. No temporal or scalp tenderness. EYES: No scleral icterus. No injection or drainage. Proptosis ENT: Nose without bleeding, purulent drainage or septal hematoma. Airway patent. NECK: Trachea midline. No JVD Supple, nontender, no meningeal signs. CARDIOVASCULAR: Tachycardic without murmurs, gallops, or rubs. RESPIRATORY: Bilateral expiratory wheezing. Equal air entry bilaterally. GASTROINTESTINAL: Abdomen soft, non-tender, nondistended. No guarding. Obese. MUSCULOSKELETAL: Extremities without clubbing, cyanosis, or edema. NEUROLOGICAL: Awake and alert. Motor and sensory grossly within normal limits. Normal speech. PSYCH: Flattened affect. Medications and IVs Current Medications Medications (Trade) Dose Ordered Sig/Enrique Route Start Time Stop Time Status Last Admin (NS Flush) 2 ml UNSCH PRN IV FLUSH 07/19/16 00:30 (NS Flush) 2 ml BID IV FLUSH 07/19/16 09:00 07/20/16 07:36 (Narcan Inj) 0.4 mg UNSCH PRN IV 07/19/16 00:30 Miscellaneous Information 1 Q361D XX 07/19/16 02:00 07/19/16 02:00 (Chlorhexidine 2% Cloth) 3 pack Taper DAILY@04 TOP 07/19/16 04:00 07/15/17 03:59 07/20/16 04:00 Chlorhexidine Gluconate 3 pack 3 pack UNSCH PRN TOP 07/19/16 02:00 (Azactam Inj/NS Inj) 100 ml @ 200 mls/hr Q12H IV 07/19/16 11:00 07/19/16 23:00 (Heparin Inj) 5,000 units Q8HR SQ 07/19/16 14:00 07/20/16 05:53 (Protonix) 40 mg DAILY PO 07/19/16 09:00 07/20/16 07:36 (SoluMEDROL INJ) 40 mg Q8HR IV PUSH 07/19/16 10:00 07/20/16 05:53 (risperDAL) 3 mg HS PO 07/19/16 21:00 07/19/16 21:00 (Desyrel) 50 mg HS PO 07/19/16 21:00 07/19/16 21:00 (Tylenol) 650 mg Q4H PRN PO 07/19/16 17:45 07/19/16 18:28 (Roxicodone) 5 mg Q4H PRN PO 07/19/16 17:45 07/20/16 04:32 A/P Assessment and Plan COPD exacerbation/ Pneumonia/ Sarcoidosis Failed outpatient pneumonia treatment with prednisone and azithromycin per patient. Significant hypoxic respiratory failure - o2 sat in 70s on RA upon arrival. Has leukocytosis with left shift. Hx of respiratory failure with tracheostomy in 2016. History of Aspergillus fumigatus lung infection 2016. - switch Azactam to doxycycline. - continue Solumedrol. - oxygen and nebs as needed. - pulmonology consult requested. - BiPAP as needed. - incentive spirometry. - PT. - walk test prior to discharge. Bipolar disorder The pt endorses chronic fatigue s/t meds which were recently increased. - decrease Risperdal and trazodone and monitor. Grade 1 diastolic heart failure Noted on recent echo. Does not appear to be overloaded at this time. - monitor volume status. - continue home Lasix. DVT prophylaxis: heparin. Discharge Planning Transfer to medical floor. Horacio Kirkpatrick DO July 20, 2016 10:26
[2016-07-20] MEDS ORDERED: PILL SPLITTER OTHER PRN (10:30)
--- NOTE | 2016-07-20 10:46 | EKG ---
Date Performed: 07/19/2016 Time Performed: 18:47:54 PTAGE: 41 years EKG: SINUS TACHYCARDIA POSSIBLE LEFT ATRIAL ENLARGEMENT BORDERLINE RIGHT AXIS DEVIATION LOW QRS VOLTAGE IN PRECORDIAL LEADS POSSIBLE RIGHT VENTRICULAR CONDUCTION DELAY ABNORMAL RHYTHM ECG PREVIOUS TRACING : 07/18/2016 22.39 DOCTOR: Casimiro Seaman Interpretating Date/Time 07/20/2016 10:43:58
[2016-07-20] MEDS: DOXYCYCLINE INJ 100 MG in SODIUM CHLORIDE 0.9% INJ 100 ML IV SCH (11:10)
[2016-07-20] MEDS: CITALOPRAM HYDROBROMIDE 20 MG TAB PO SCH (11:27)
[2016-07-20] MEDS: GABAPENTIN 100 MG CAP PO SCH ×2 (11:27→20:38)
[2016-07-20] MEDS ORDERED: BENZONATATE 100 MG CAP PO PRN (15:45)
--- NOTE | 2016-07-20 17:21 | HHI.PR ---
Subjective Remarks 41 YO AA female with Hypercapnoic RF, weaned to NC Mild sob and wheezing no Fever Objective Vital Signs Vital Signs Date Time Temp Pulse Resp B/P Pulse Ox O2 Delivery O2 Flow Rate FiO2 07/20/16 12:00 98.9 110 22 116/69 92 07/20/16 12:00 104 07/20/16 10:00 110 07/20/16 08:00 98.3 111 20 122/60 92 07/20/16 08:00 111 07/20/16 07:58 94 Nasal Cannula 4.00 07/20/16 06:00 127 07/20/16 04:00 105 07/20/16 04:00 97.9 105 24 103/75 95 07/20/16 02:00 99 07/20/16 00:00 109 07/20/16 00:00 97.8 109 30 116/74 97 07/19/16 22:00 109 07/19/16 20:17 100 Nasal Cannula 4.00 07/19/16 20:00 98.1 112 32 119/64 100 07/19/16 20:00 112 07/19/16 18:00 99 I/O 07/19/16 07/19/16 07/19/16 07/20/16 07/20/16 07/20/16 07:00 15:00 23:00 07:00 15:00 23:00 Intake Total 460 ml 800 ml 605 ml 760 ml 711 ml Output Total 350 ml 2100 ml 600 ml 400 ml Balance 110 ml -1300 ml 5 ml 360 ml 711 ml Intake Oral 460 ml 650 ml 500 ml 760 ml 600 ml IV Total 150 ml 105 ml 111 ml Output Urine Total 350 ml 2100 ml 600 ml 400 ml # Voids 1 2 # Bowel Movements 0 Result Diagram: 07/20/1639 07/20/1639 Objective Remarks GENERAL: WBWN female, NAD SKIN: Warm and dry. HEAD: Normocephalic. EYES: No scleral icterus. No injection or drainage. NECK: Supple, trachea midline. No JVD or lymphadenopathy. CARDIOVASCULAR: Regular rate and rhythm without murmurs, gallops, or rubs. RESPIRATORY: Breath sounds equal bilaterally. No accessory muscle use. GASTROINTESTINAL: Abdomen soft, non-tender, nondistended. MUSCULOSKELETAL: No cyanosis, or edema. BACK: Nontender without obvious deformity. No CVA tenderness. A/P Assessment and Plan Hypercapnoic RF, improved COPD exac Sarcoidosis ILD basal infilt Nicotine use PLAN: Cont Solumedrol Cont Abx Aerosol nebs Smoking cessation Wean 02 CPAP prn. Kristofer Clifford MD July 20, 2016 17:21
[2016-07-20] MEDS: FUROSEMIDE 20 MG TAB PO SCH (17:33)
[2016-07-20] MEDS: traZODone HCL 50 MG TAB PO SCH (20:37)
[2016-07-20] MEDS: risperiDONE 3 MG TAB PO SCH (20:38)
[2016-07-21] VITALS (9 sets, daily range): BP systolic 94–124; BP diastolic 60–85; PULSE 93–109; RESP 16–18; TEMP 96.1–98.1; O2SAT 93–97
[2016-07-21] MEDS: DOXYCYCLINE INJ 100 MG in SODIUM CHLORIDE 0.9% INJ 100 ML IV SCH (00:08)
[2016-07-21] MEDS: CHLORHEXIDINE GLUCONATE 2 % 1 PACK (2 CLOTHS) TOP SCH (04:00)
[2016-07-21] MEDS: HEPARIN SODIUM - SQ 10,000 UNITS/ML VIAL SQ SCH ×3 (05:46→22:48)
[2016-07-21] MEDS: methylPREDNISolone SOD SUCC 40 MG/1 ML VIAL IV PUSH SCH ×3 (05:46→22:47)
[2016-07-21] MEDS: RESP: ALBUTEROL 2.5 MG/IPRATROPIUM 0.5 MG NEB (SCH) NEB ×3 (07:55→20:47)
[2016-07-21] MEDS: PANTOPRAZOLE SOD 40 MG DELAYED RELEASE TAB PO SCH (08:52)
[2016-07-21] MEDS: FUROSEMIDE 20 MG TAB PO SCH (08:52)
[2016-07-21] MEDS: CITALOPRAM HYDROBROMIDE 20 MG TAB PO SCH (08:52)
[2016-07-21] MEDS: GABAPENTIN 100 MG CAP PO SCH ×2 (08:52→20:06)
[2016-07-21] MEDS: SODIUM CHLORIDE 0.9% FLUSH 10 ML FLUSH IV FLUSH SCH ×2 (08:54→20:06)
[2016-07-21 09:06] LABS: HEMATOCRIT 43.2 % (35.0-46.0); MEAN CELL VOLUME 82.5 FL (80.0-100.0); MEAN CORPUSCULAR HEMOGLOBIN 25.8 PG (27.0-34.0); MEAN CORPUSCULAR HGB CONC 31.3 % (32.0-36.0); PLATELET COUNT 430 TH/MM3 (150-450); RED BLOOD COUNT 5.23 MIL/MM3 (4.00-5.30); RED CELL DISTRIBUTION WIDTH 15.9 % (11.6-17.2); REVIEW FLAG FINAL; WHITE BLOOD COUNT 14.2 TH/MM3 (4.0-11.0)
[2016-07-21 09:33] LABS: BICARBONATE 36.1 MEQ/L (21.0-32.0); MAGNESIUM 2.7 MG/DL (1.5-2.5); POTASSIUM 4.5 MEQ/L (3.5-5.1)
--- NOTE | 2016-07-21 10:08 | HHI.PR ---
Subjective Remarks Patient states feels better however still coughing denies fevers or chills creatinine trending down stable vital signs sating 95% on 4 liter nasal canula Patient still tachycardic Objective Vitals Vital Signs Date Time Temp Pulse Resp B/P Pulse Ox O2 Delivery O2 Flow Rate FiO2 07/21/16 08:00 98.0 108 16 94/60 95 07/21/16 07:55 97 Nasal Cannula 4.00 07/21/16 04:00 98.1 93 18 124/65 94 07/21/16 01:08 20 07/21/16 00:00 98.0 103 17 114/65 93 07/20/16 20:00 106 07/20/16 20:00 97.1 112 16 116/73 94 07/20/16 18:58 95 Nasal Cannula 4.00 07/20/16 15:50 98.2 104 20 126/84 95 07/20/16 13:50 96.9 112 20 131/77 100 07/20/16 12:00 98.9 110 22 116/69 92 07/20/16 12:00 104 07/20/16 10:00 110 I/O 07/20/16 07/20/16 07/20/16 07/21/16 07/21/16 07/21/16 07:00 15:00 23:00 07:00 15:00 23:00 Intake Total 760 ml 711 ml 480 ml 590 ml Output Total 400 ml Balance 360 ml 711 ml 480 ml 590 ml Intake Oral 760 ml 600 ml 480 ml 240 ml IV Total 111 ml 350 ml Output Urine Total 400 ml # Voids 2 2 3 Result Diagram: 07/21/16 0734 07/21/16 0734 Imaging Last Impressions Chest X-Ray 07/18/16 2240 Signed Impressions: Service Date/Time: Monday, July 18, 2016 23:11 - CONCLUSION: No significant change in the bilateral patchy pulmonary opacities. Horacio Simpson MD Reviewed by me Objective Remarks GENERAL: This is a well-nourished, well-developed patient, resting in bed, no respiratory distress observed. SKIN: No rashes, ecchymoses or lesions. Cool and dry. HEAD: Atraumatic. Normocephalic. No temporal or scalp tenderness. EYES: No scleral icterus. No injection or drainage. Proptosis ENT: Nose without bleeding, purulent drainage or septal hematoma. Airway patent. NECK: Trachea midline. No JVD Supple, nontender, no meningeal signs. CARDIOVASCULAR: Tachycardic without murmurs, gallops, or rubs. RESPIRATORY:Diffuse bilateral expiratory wheezing. Equal air entry bilaterally. GASTROINTESTINAL: Abdomen soft, non-tender, nondistended. No guarding. Obese. MUSCULOSKELETAL: Extremities without clubbing, cyanosis, or edema. NEUROLOGICAL: Awake and alert. Motor and sensory grossly within normal limits. Normal speech. PSYCH: Flattened affect. Procedures none Medications and IVs Current Medications Medications (Trade) Dose Ordered Sig/Enrique Route Start Time Stop Time Status Last Admin (NS Flush) 2 ml UNSCH PRN IV FLUSH 07/19/16 00:30 (NS Flush) 2 ml BID IV FLUSH 07/19/16 09:00 07/21/16 08:54 (Narcan Inj) 0.4 mg UNSCH PRN IV 07/19/16 00:30 Miscellaneous Information 1 Q361D XX 07/19/16 02:00 07/19/16 02:00 (Chlorhexidine 2% Cloth) 3 pack Taper DAILY@04 TOP 07/19/16 04:00 07/15/17 03:59 07/20/16 04:00 (Chlorhexidine 2% Cloth) 3 pack UNSCH PRN TOP 07/19/16 02:00 (Heparin Inj) 5,000 units Q8HR SQ 07/19/16 14:00 07/21/16 05:46 (Protonix) 40 mg DAILY PO 07/19/16 09:00 07/21/16 08:52 (SoluMEDROL INJ) 40 mg Q8HR IV PUSH 07/19/16 10:00 07/21/16 05:46 (Desyrel) 50 mg HS PO 07/19/16 21:00 07/20/16 20:37 (Tylenol) 650 mg Q4H PRN PO 07/19/16 17:45 07/19/16 18:28 Oxycodone HCl 5 mg 5 mg Q4H PRN PO 07/19/16 17:45 07/21/16 08:53 (Vibramycin Inj/ NS Inj) 100 ml @ 100 mls/hr Q12H IV 07/20/16 12:00 07/21/16 00:08 (risperDAL) 1.5 mg HS PO 07/20/16 21:00 07/20/16 20:38 (CeleXA) 20 mg DAILY PO 07/20/16 10:30 07/21/16 08:52 (Lasix) 20 mg BID@09,18 PO 07/20/16 18:00 07/21/16 08:52 (Neurontin) 200 mg BID PO 07/20/16 10:30 07/21/16 08:52 (Pill Splitter) 1 ea UNSCH PRN OTHER 07/20/16 10:30 (Tessalon) 200 mg TID PRN PO 07/20/16 15:45 07/20/16 17:33 Urinary Catheter: No Vascular Central Line Catheter: No A/P Problem List: (1) Sepsis ICD Code: A41.9 Status: Acute Plan: Present on admission. Patient presented with leukocytosis and tachycardia. Patient also with significant hypercapnic hypoxemic respiratory failure. Patient failed outpatient therapy for pneumonia with prednisone and azithromycin. Continue IV antibiotics. Continue IV Solu Medrol 40 mg IV every 8 hours, oxygen as needed, incentive spirometry. Patient initially was started on IV aztreonam, which was discontinued at the patient was then started on doxycycline IV. However this would not provide adequate coverage for hospital-acquired pneumonia. The patient has risk factors for multidrug resistant and has received antibiotics within the past 90 days. I will discontinue IV doxycycline on IV aztreonam, Levaquin IV and IV vancomycin. Appreciate pulmonology consultation and recommendations. I will give a bolus of IV normal saline, since patient was on diuretics and is currently hypotensive with systolic blood pressure in the 90s. Hold diuretics for now. Blood cultures negative 2. Sepsis is improving with WBC trending down and patient afebrile. (2) Respiratory failure with hypoxia and hypercapnia ICD Code: J96.91 Status: Resolved Plan: Due to pneumonia and COPD exacerbation. Respiratory failure much improved now patient on 4 L nasal cannula Continue oxygen as needed to keep oxygen saturation more than 92% Check sputum culture, check for influenza A and B. (3) HCAP (healthcare-associated pneumonia) ICD Code: J18.9 Status: Acute Plan: As shown on chest x-ray detailed above. Continue IV doxycycline (4) Sarcoidosis ICD Code: D86.9 Status: Chronic Plan: Seems to be stable. Pulmonary following. (5) Steroid-induced hyperglycemia ICD Code: R73.9 Status: Acute Plan: We'll place on SSI with insulin NovoLog and monitor Accu-Cheks. (6) STEPHANIE (acute kidney injury) ICD Code: N17.9 Status: Acute Plan: Creatinine elevated at 1.6 on admission. Creatinine trending down. Continue to monitor BUN/creatinine, strict I's and O's. (7) Chronic diastolic (congestive) heart failure ICD Code: I50.32 Status: Chronic Plan: Seems to be stable at this moment. Patient carbon dioxide trending up likely due to contraction alkalosis. I will discontinue diuretics for now and give IV fluids. (8) Leukocytosis ICD Code: D72.829 Status: Acute Plan: Leukocytosis likely secondary to sepsis secondary to pneumonia and COPD exacerbation as detailed above. Continue to monitor WBC. (9) Smoker ICD Code: F17.200 Status: Chronic Plan: Advises smoking cessation. Will Rx a nicotine patch. Assessment and Plan GI prophylaxis: PPI. DVT prophylaxis: SCDs, Lovenox subcutaneously. Discharge Planning Discharge pending clinical improvement. Problem Qualifiers (1) Sepsis: Qualified Code: A41.9 - Sepsis, due to unspecified organism (2) Respiratory failure with hypoxia and hypercapnia: Qualified Code: J96.01 - Acute respiratory failure with hypoxia and hypercapnia (3) Leukocytosis: Qualified Code: D72.829 - Leukocytosis, unspecified type Mario Cheney MD July 21, 2016 10:08
[2016-07-21] MEDS ORDERED: GLUCAGON 1 MG/ML VIAL OTHER PRN (10:45)
[2016-07-21] MEDS ORDERED: DEXTROSE 50% IN WATER 50 ML VIAL(D50) IV PRN (10:45)
[2016-07-21] MEDS: NICOTINE 21 MG/24 HR PATCH T-DERMAL SCH (10:59)
[2016-07-21] MEDS ORDERED: ENOXAPARIN SODIUM 40 MG/0.4 ML SYRINGE SQ SCH (11:00)
[2016-07-21] MEDS: LEVOFLOXACIN 750 MG PREMIX INJ 150 ML IV SCH (11:04)
[2016-07-21] MEDS: INSULIN ASPART SUPPLEMENTAL SCALE SQ SCH ×3 (11:26→20:05)
[2016-07-21] MEDS: AZTREONAM INJ 2,000 MG in SODIUM CHLORIDE 0.9% INJ 100 ML IV SCH ×2 (12:15→20:06)
[2016-07-21] MEDS: VANCOMYCIN INJ 1,000 MG in SODIUM CHLOR 0.9% 250 ML INJ 250 ML IV SCH (13:40)
[2016-07-21] MEDS ORDERED: SODIUM CHLORIDE 0.65% NASAL SPRAY 45 ML BTL EACH NARE PRN (19:45)
--- NOTE | 2016-07-21 19:45 | HHI.PR ---
Subjective Remarks 41 YO AA female with Hypercapnoic RF, weaned to NC Mild sob and wheezing no Fever has stuffy nose Objective Vital Signs Vital Signs Date Time Temp Pulse Resp B/P Pulse Ox O2 Delivery O2 Flow Rate FiO2 07/21/16 16:00 98.0 96 16 120/85 96 07/21/16 12:00 96.1 109 16 103/74 95 07/21/16 08:36 94 07/21/16 08:00 98.0 108 16 94/60 95 07/21/16 07:55 97 Nasal Cannula 4.00 07/21/16 04:00 98.1 93 18 124/65 94 07/21/16 01:08 20 07/21/16 00:00 98.0 103 17 114/65 93 07/20/16 20:00 106 07/20/16 20:00 97.1 112 16 116/73 94 I/O 07/20/16 07/20/16 07/20/16 07/21/16 07/21/16 07/21/16 07:00 15:00 23:00 07:00 15:00 23:00 Intake Total 760 ml 711 ml 480 ml 590 ml 1100 ml Output Total 400 ml Balance 360 ml 711 ml 480 ml 590 ml 1100 ml Intake Oral 760 ml 600 ml 480 ml 240 ml 600 ml IV Total 111 ml 350 ml 500 ml Output Urine Total 400 ml # Voids 2 2 3 2 # Bowel Movements 1 Result Diagram: 07/21/16 0734 07/21/16 0734 Objective Remarks GENERAL: WBWN female, NAD SKIN: Warm and dry. HEAD: Normocephalic. EYES: No scleral icterus. No injection or drainage. NECK: Supple, trachea midline. No JVD or lymphadenopathy. CARDIOVASCULAR: Regular rate and rhythm without murmurs, gallops, or rubs. RESPIRATORY: Breath sounds equal bilaterally. No accessory muscle use. GASTROINTESTINAL: Abdomen soft, non-tender, nondistended. MUSCULOSKELETAL: No cyanosis, or edema. BACK: Nontender without obvious deformity. No CVA tenderness. A/P Assessment and Plan Hypercapnoic RF, improved COPD exac Sarcoidosis ILD basal infilt Nicotine use PLAN: Cont Solumedrol Cont Abx Aerosol nebs Smoking cessation Wean 02 CPAP prn. Saline Kristofer Mckeon MD July 21, 2016 19:45
[2016-07-21] MEDS: risperiDONE 3 MG TAB PO SCH (20:05)
[2016-07-21] MEDS: traZODone HCL 50 MG TAB PO SCH (20:06)
[2016-07-22] VITALS (8 sets, daily range): BP systolic 100–133; BP diastolic 51–90; PULSE 70–124; RESP 15–20; TEMP 95.5–96.7; O2SAT 93–99
[2016-07-22] MEDS: CHLORHEXIDINE GLUCONATE 2 % 1 PACK (2 CLOTHS) TOP SCH (04:00)
[2016-07-22] MEDS: methylPREDNISolone SOD SUCC 40 MG/1 ML VIAL IV PUSH SCH (06:11)
[2016-07-22] MEDS: HEPARIN SODIUM - SQ 10,000 UNITS/ML VIAL SQ SCH ×3 (06:11→21:10)
[2016-07-22] MEDS: AZTREONAM INJ 2,000 MG in SODIUM CHLORIDE 0.9% INJ 100 ML IV SCH ×2 (06:11→12:49)
[2016-07-22] MEDS: INSULIN ASPART SUPPLEMENTAL SCALE SQ SCH ×4 (06:13→20:05)
[2016-07-22] MEDS: RESP: ALBUTEROL 2.5 MG/IPRATROPIUM 0.5 MG NEB (SCH) NEB ×3 (08:04→20:36)
[2016-07-22] MEDS: CITALOPRAM HYDROBROMIDE 20 MG TAB PO SCH (08:40)
[2016-07-22] MEDS: PANTOPRAZOLE SOD 40 MG DELAYED RELEASE TAB PO SCH (08:40)
[2016-07-22] MEDS: GABAPENTIN 100 MG CAP PO SCH ×2 (08:40→20:13)
[2016-07-22] MEDS: NICOTINE 21 MG/24 HR PATCH T-DERMAL SCH (08:43)
[2016-07-22] MEDS: SODIUM CHLORIDE 0.9% FLUSH 10 ML FLUSH IV FLUSH SCH ×2 (08:45→20:16)
[2016-07-22] MEDS: REMOVE OLD PATCH T-DERMAL SCH (09:00)
[2016-07-22 11:17] LABS: AUTOMATED NEUTROPHIL # 12.8 TH/MM3 (1.8-7.7); BASOPHIL # 0.1 TH/MM3 (0-0.2); BASOPHIL % 0.5 % (0.0-2.0); EOSINOPHIL % 0.1 % (0.0-4.0); HEMATOCRIT 47.2 % (35.0-46.0); HEMO FLAGS DIFF FINAL; LYMPH % 8.1 % (9.0-44.0); LYMPHOCYTE # 1.3 TH/MM3 (1.0-4.8); MEAN CELL VOLUME 81.8 FL (80.0-100.0); MEAN CORPUSCULAR HEMOGLOBIN 26.3 PG (27.0-34.0); MEAN CORPUSCULAR HGB CONC 32.1 % (32.0-36.0); MONO % 10.5 % (0.0-8.0); NEUT % 80.8 % (16.0-70.0); PLATELET COUNT 472 TH/MM3 (150-450); RED BLOOD COUNT 5.77 MIL/MM3 (4.00-5.30); RED CELL DISTRIBUTION WIDTH 15.7 % (11.6-17.2); WHITE BLOOD COUNT 15.9 TH/MM3 (4.0-11.0)
[2016-07-22 11:43] LABS: ANION GAP 10 MEQ/L (5-15); AST (GOT) 6 U/L (15-37); BLOOD UREA NITROGEN 31 MG/DL (7-18); CHLORIDE 94 MEQ/L (98-107); GLOMERULAR FILTRATION RATE 60 ML/MIN (>89); MAGNESIUM 2.6 MG/DL (1.5-2.5); POTASSIUM 4.2 MEQ/L (3.5-5.1); SODIUM (NA) 136 MEQ/L (136-145)
[2016-07-22 11:47] LABS: ALKALINE PHOSPHATASE 91 U/L (45-117); ALT (GPT) 15 U/L (10-53); TOTAL BILIRUBIN ADULT 0.2 MG/DL (0.2-1.0)
[2016-07-22] MEDS: LEVOFLOXACIN 750 MG PREMIX INJ 150 ML IV SCH (11:51)
[2016-07-22] MEDS: VANCOMYCIN INJ 1,000 MG in SODIUM CHLOR 0.9% 250 ML INJ 250 ML IV SCH (14:21)
--- NOTE | 2016-07-22 14:35 | HHI.PR ---
Subjective Remarks feels much better sob much improved denies cp denies fevers/chills vital signs stable Objective Vitals Vital Signs Date Time Temp Pulse Resp B/P Pulse Ox O2 Delivery O2 Flow Rate FiO2 07/22/16 11:00 96.1 89 15 124/88 96 07/22/16 08:04 94 Nasal Cannula 2.00 07/22/16 07:00 96.6 108 15 133/90 93 07/22/16 04:00 96.7 70 16 101/59 95 07/22/16 00:00 95.5 86 16 100/51 96 07/21/16 20:47 96 Nasal Cannula 3.00 07/21/16 20:00 96.8 107 18 115/69 95 07/21/16 16:00 98.0 96 16 120/85 96 I/O 07/21/16 07/21/16 07/21/16 07/22/16 07/22/16 07/22/16 07:00 15:00 23:00 07:00 15:00 23:00 Intake Total 590 ml 1100 ml 240 ml 480 ml Balance 590 ml 1100 ml 240 ml 480 ml Intake Oral 240 ml 600 ml 240 ml 480 ml IV Total 350 ml 500 ml # Voids 3 2 3 # Bowel Movements 1 Result Diagram: 07/22/16 1022 07/22/16 1022 Imaging Last Impressions Chest X-Ray 07/18/16 2240 Signed Impressions: Service Date/Time: Monday, July 18, 2016 23:11 - CONCLUSION: No significant change in the bilateral patchy pulmonary opacities. Horacio Simpson MD Objective Remarks GENERAL: This is a well-nourished, well-developed patient, resting in bed, no respiratory distress observed. SKIN: No rashes, ecchymoses or lesions. Cool and dry. HEAD: Atraumatic. Normocephalic. No temporal or scalp tenderness. EYES: No scleral icterus. No injection or drainage. Proptosis ENT: Nose without bleeding, purulent drainage or septal hematoma. Airway patent. NECK: Trachea midline. No JVD Supple, nontender, no meningeal signs. CARDIOVASCULAR: Tachycardic without murmurs, gallops, or rubs. RESPIRATORY: Clear to auscultation bilaterally. Equal air entry bilaterally. GASTROINTESTINAL: Abdomen soft, non-tender, nondistended. No guarding. Obese. MUSCULOSKELETAL: Extremities without clubbing, cyanosis, or edema. NEUROLOGICAL: Awake and alert. Motor and sensory grossly within normal limits. Normal speech. PSYCH: Flattened affect. Procedures none Medications and IVs Current Medications Medications (Trade) Dose Ordered Sig/Enrique Route Start Time Stop Time Status Last Admin (NS Flush) 2 ml UNSCH PRN IV FLUSH 07/19/16 00:30 (NS Flush) 2 ml BID IV FLUSH 07/19/16 09:00 07/22/16 08:45 (Narcan Inj) 0.4 mg UNSCH PRN IV 07/19/16 00:30 Miscellaneous Information 1 Q361D XX 07/19/16 02:00 07/19/16 02:00 (Chlorhexidine 2% Cloth) 3 pack Taper DAILY@04 TOP 07/19/16 04:00 07/15/17 03:59 07/20/16 04:00 (Chlorhexidine 2% Cloth) 3 pack UNSCH PRN TOP 07/19/16 02:00 (Heparin Inj) 5,000 units Q8HR SQ 07/19/16 14:00 07/22/16 14:20 (Protonix) 40 mg DAILY PO 07/19/16 09:00 07/22/16 08:40 (Desyrel) 50 mg HS PO 07/19/16 21:00 07/21/16 20:06 (Tylenol) 650 mg Q4H PRN PO 07/19/16 17:45 07/19/16 18:28 (Roxicodone) 5 mg Q4H PRN PO 07/19/16 17:45 07/21/16 20:06 (risperDAL) 1.5 mg HS PO 07/20/16 21:00 07/21/16 20:05 (CeleXA) 20 mg DAILY PO 07/20/16 10:30 07/22/16 08:40 (Neurontin) 200 mg BID PO 07/20/16 10:30 07/22/16 08:40 (Pill Splitter) 1 ea UNSCH PRN OTHER 07/20/16 10:30 Benzonatate 200 mg 200 mg TID PRN PO 07/20/16 15:45 07/20/16 17:33 Vancomycin HCl 1000 mg/Sodium Chloride 250 ml @ 250 mls/hr Q24H IV 07/21/16 13:00 07/22/16 14:21 Levofloxacin/ Dextrose 150 ml @ 100 mls/hr Q24H IV 07/21/16 11:00 07/22/16 11:51 (Azactam Inj/NS Inj) 100 ml @ 200 mls/hr Q8H IV 07/21/16 12:00 07/22/16 12:49 (D50w (Vial) Inj) 50 ml UNSCH PRN IV 07/21/16 10:45 (Glucagon Inj) 1 mg UNSCH PRN OTHER 07/21/16 10:45 (Habitrol 21 Mg Patch.24 Hr) 1 patch DAILY T-DERMAL 07/21/16 10:45 07/22/16 08:43 Miscellaneous Information 1 DAILY T-DERMAL 07/22/16 09:00 (Leslie Emile Ralston) 2 spray Q4H PRN EACH NARE 07/21/16 19:45 07/21/16 22:48 (SoluMEDROL INJ) 40 mg DAILY IV PUSH 07/23/16 09:00 Urinary Catheter: No Vascular Central Line Catheter: No A/P Problem List: (1) Sepsis ICD Code: A41.9 Status: Acute Plan: Present on admission. Patient presented with leukocytosis and tachycardia. Patient also with significant hypercapnic hypoxemic respiratory failure. Patient failed outpatient therapy for pneumonia with prednisone and azithromycin. Continue IV antibiotics. Continue IV Solu Medrol 40 mg IV every 8 hours, oxygen as needed, incentive spirometry. Patient initially was started on IV aztreonam, which was discontinued at the patient was then started on doxycycline IV. However this would not provide adequate coverage for hospital-acquired pneumonia. The patient has risk factors for multidrug resistant and has received antibiotics within the past 90 days. I will discontinue IV doxycycline on IV aztreonam, Levaquin IV and IV vancomycin. Appreciate pulmonology consultation and recommendations. I will give a bolus of IV normal saline, since patient was on diuretics and is currently hypotensive with systolic blood pressure in the 90s. Hold diuretics for now. All cultures negative to date. Sputum culture showed heavy growth of normal respiratory geetha. Specimens improving, WBC is still elevated at 15.9, however the patient is on IV steroids, nontoxic and afebrile. Discontinue IV vancomycin and IV aztreonam , continue Levaquin IV. We'll decrease IV Solu-Medrol 40 mg IV every 8 hours to 40 mg IV daily. (2) Respiratory failure with hypoxia and hypercapnia ICD Code: J96.91 Status: Resolved Plan: Due to pneumonia and COPD exacerbation. Respiratory failure much improved now patient on 4 L nasal cannula Continue oxygen as needed to keep oxygen saturation more than 92% Check sputum culture, influenza A and B negative. (3) HCAP (healthcare-associated pneumonia) ICD Code: J18.9 Status: Acute Plan: As shown on chest x-ray detailed above. Continue IV doxycycline (4) Sarcoidosis ICD Code: D86.9 Status: Chronic Plan: Seems to be stable. Pulmonary following. (5) Steroid-induced hyperglycemia ICD Code: R73.9 Status: Acute Plan: Continue SSI with insulin NovoLog and monitor Accu-Cheks. Blood sugars are stable. (6) STEPHANIE (acute kidney injury) ICD Code: N17.9 Status: Acute Plan: Creatinine elevated at 1.6 on admission. Creatinine trending down. Continue to monitor BUN/creatinine, strict I's and O's. Creatinine today stable at 1.2. (7) Chronic diastolic (congestive) heart failure ICD Code: I50.32 Status: Chronic Plan: Seems to be stable at this moment. Patient carbon dioxide trending up likely due to contraction alkalosis. I will discontinue diuretics for now and give IV fluids. (8) Leukocytosis ICD Code: D72.829 Status: Acute Plan: Leukocytosis likely secondary to sepsis secondary to pneumonia and COPD exacerbation as detailed above. Continue to monitor WBC. (9) Smoker ICD Code: F17.200 Status: Chronic Plan: Advises smoking cessation. Continue nicotine patch. Assessment and Plan GI prophylaxis: PPI. DVT prophylaxis: SCDs, Lovenox subcutaneously. Discharge Planning Discharge in a.m. Problem Qualifiers (1) Sepsis: Qualified Code: A41.9 - Sepsis, due to unspecified organism (2) Respiratory failure with hypoxia and hypercapnia: Qualified Code: J96.01 - Acute respiratory failure with hypoxia and hypercapnia (3) Leukocytosis: Qualified Code: D72.829 - Leukocytosis, unspecified type Mario Cheney MD July 22, 2016 14:35
[2016-07-22] MEDS ORDERED: PRED20 PO (16:46)
[2016-07-22] MEDS ORDERED: NICO14DI4 T-DERMAL (16:46)
[2016-07-22] MEDS ORDERED: LEVO500T3 PO (16:46)
--- NOTE | 2016-07-22 16:46 | HHI.DCPOC ---
Discharge Care Plan Diagnosis: (1) Respiratory failure with hypoxia and hypercapnia (2) Chronic diastolic (congestive) heart failure (3) Sarcoidosis (4) Hypercapnic respiratory failure (5) Steroid-induced hyperglycemia (6) HCAP (healthcare-associated pneumonia) (7) STEPHANIE (acute kidney injury) (8) Sepsis (9) Leukocytosis Goals to Promote Your Health * To prevent worsening of your condition and complications * To maintain your health at the optimal level Directions to Meet Your Goals Take your medications as prescribed Follow your dietary instruction Follow activity as directed Keep your appointments as scheduled Take your immunizations and boosters as scheduled If your symptoms worsen call your PCP, if no PCP go to Urgent Care Center or Emergency Room Smoking is Dangerous to Your Health. Avoid second hand smoke Call the 24-hour hour crisis hotline for domestic abuse at Mario Cheney MD July 22, 2016 16:46
[2016-07-22] MEDS ORDERED: IPRASOL INH (16:50)
[2016-07-22] MEDS ORDERED: NEBULIZER1 MI1 (16:50)
[2016-07-22] MEDS ORDERED: SALM50I INH (16:50)
--- NOTE | 2016-07-22 18:17 | HHI.PR ---
Subjective Remarks 41 YO AA female with Hypercapnoic RF, weaned to NC Mild sob and wheezing no Fever has stuffy nose Breathing better Ambulates Objective Vital Signs Vital Signs Date Time Temp Pulse Resp B/P Pulse Ox O2 Delivery O2 Flow Rate FiO2 07/22/16 17:14 3.00 07/22/16 16:00 96.4 124 17 114/85 94 07/22/16 11:00 96.1 89 15 124/88 96 07/22/16 08:04 94 Nasal Cannula 2.00 07/22/16 07:00 96.6 108 15 133/90 93 07/22/16 04:00 96.7 70 16 101/59 95 07/22/16 00:00 95.5 86 16 100/51 96 07/21/16 20:47 96 Nasal Cannula 3.00 07/21/16 20:00 96.8 107 18 115/69 95 I/O 07/21/16 07/21/16 07/21/16 07/22/16 07/22/16 07/22/16 07:00 15:00 23:00 07:00 15:00 23:00 Intake Total 590 ml 1100 ml 240 ml 480 ml Balance 590 ml 1100 ml 240 ml 480 ml Intake Oral 240 ml 600 ml 240 ml 480 ml IV Total 350 ml 500 ml # Voids 3 2 3 # Bowel Movements 1 Result Diagram: 07/22/16 1022 07/22/16 1022 Objective Remarks GENERAL: WBWN female, NAD SKIN: Warm and dry. HEAD: Normocephalic. EYES: No scleral icterus. No injection or drainage. NECK: Supple, trachea midline. No JVD or lymphadenopathy. CARDIOVASCULAR: Regular rate and rhythm without murmurs, gallops, or rubs. RESPIRATORY: Breath sounds equal bilaterally. No accessory muscle use. GASTROINTESTINAL: Abdomen soft, non-tender, nondistended. MUSCULOSKELETAL: No cyanosis, or edema. BACK: Nontender without obvious deformity. No CVA tenderness. A/P Assessment and Plan Hypercapnoic RF, improved COPD exac Sarcoidosis ILD basal infilt Nicotine use PLAN: Wean Solumedrol Cont Abx Aerosol nebs Smoking cessation Wean 02 Saline NS Stable from pulm standpoint Available prn over weekend. Kristofer Clifford MD July 22, 2016 18:17
[2016-07-22] MEDS: risperiDONE 3 MG TAB PO SCH (20:13)
[2016-07-22] MEDS: traZODone HCL 50 MG TAB PO SCH (20:13)
[2016-07-23] VITALS (7 sets, daily range): BP systolic 100–123; BP diastolic 69–84; PULSE 69–110; RESP 16–20; TEMP 96.9–98.2; O2SAT 92–96
[2016-07-23] MEDS: CHLORHEXIDINE GLUCONATE 2 % 1 PACK (2 CLOTHS) TOP SCH (03:14)
[2016-07-23] MEDS: HEPARIN SODIUM - SQ 10,000 UNITS/ML VIAL SQ SCH ×3 (05:45→19:42)
[2016-07-23] MEDS: INSULIN ASPART SUPPLEMENTAL SCALE SQ SCH ×4 (06:18→19:41)
[2016-07-23 07:14] LABS: AUTOMATED NEUTROPHIL # 9.3 TH/MM3 (1.8-7.7); BASOPHIL # 0.1 TH/MM3 (0-0.2); BASOPHIL % 0.3 % (0.0-2.0); EOSINOPHIL # 0.3 TH/MM3 (0-0.4); EOSINOPHIL % 1.6 % (0.0-4.0); HEMATOCRIT 43.6 % (35.0-46.0); LYMPH % 20.6 % (9.0-44.0); LYMPHOCYTE # 3.2 TH/MM3 (1.0-4.8); MEAN CELL VOLUME 81.8 FL (80.0-100.0); MEAN CORPUSCULAR HEMOGLOBIN 26.4 PG (27.0-34.0); MEAN CORPUSCULAR HGB CONC 32.3 % (32.0-36.0); MONO % 17.3 % (0.0-8.0); NEUT % 60.2 % (16.0-70.0); PLATELET COUNT 415 TH/MM3 (150-450); RED BLOOD COUNT 5.33 MIL/MM3 (4.00-5.30); RED CELL DISTRIBUTION WIDTH 15.6 % (11.6-17.2); WHITE BLOOD COUNT 15.5 TH/MM3 (4.0-11.0)
[2016-07-23 07:21] LABS: HEMO FLAGS AUTO DIFF
[2016-07-23 07:38] LABS: ALKALINE PHOSPHATASE 78 U/L (45-117); ALT (GPT) 15 U/L (10-53); ANION GAP 6 MEQ/L (5-15); AST (GOT) 9 U/L (15-37); BLOOD UREA NITROGEN 32 MG/DL (7-18); CHLORIDE 97 MEQ/L (98-107); GLOMERULAR FILTRATION RATE 63 ML/MIN (>89); POTASSIUM 3.9 MEQ/L (3.5-5.1); SODIUM (NA) 137 MEQ/L (136-145); TOTAL BILIRUBIN ADULT 0.2 MG/DL (0.2-1.0)
[2016-07-23] MEDS ORDERED: OXYGENTANK NAS.CANULA (08:59)
[2016-07-23] MEDS: methylPREDNISolone SOD SUCC 40 MG/1 ML VIAL IV PUSH SCH (09:00)
[2016-07-23] MEDS: SODIUM CHLORIDE 0.9% FLUSH 10 ML FLUSH IV FLUSH SCH ×2 (09:00→19:40)
[2016-07-23] MEDS: REMOVE OLD PATCH T-DERMAL SCH (09:00)
[2016-07-23] MEDS: CITALOPRAM HYDROBROMIDE 20 MG TAB PO SCH (09:00)
[2016-07-23] MEDS: NICOTINE 21 MG/24 HR PATCH T-DERMAL SCH (09:09)
[2016-07-23] MEDS: GABAPENTIN 100 MG CAP PO SCH ×2 (09:10→19:40)
[2016-07-23] MEDS: PANTOPRAZOLE SOD 40 MG DELAYED RELEASE TAB PO SCH (09:10)
[2016-07-23] MEDS: RESP: ALBUTEROL 2.5 MG/IPRATROPIUM 0.5 MG NEB (SCH) NEB ×2 (09:18→13:15)
[2016-07-23 10:03] LABS: SCAN/DIFF AUTO DIFF CONFIRMED
[2016-07-23] MEDS: LEVOFLOXACIN 750 MG PREMIX INJ 150 ML IV SCH (11:00)
--- NOTE | 2016-07-23 14:15 | HHI.DS ---
Discharge Summary Admission Date July 19, 2016 at 00:23 Discharge Date: July 23, 2016 Admitting Diagnosis Asthma exacerbation, pneumonia (1) Sepsis ICD Code: A41.9 Diagnosis: Principal (2) Respiratory failure with hypoxia and hypercapnia ICD Code: J96.91 Diagnosis: Principal (3) HCAP (healthcare-associated pneumonia) ICD Code: J18.9 Diagnosis: Principal (4) Sarcoidosis ICD Code: D86.9 Diagnosis: Secondary (5) Steroid-induced hyperglycemia ICD Code: R73.9 Diagnosis: Principal (6) STEPHANIE (acute kidney injury) ICD Code: N17.9 Diagnosis: Principal (7) Chronic diastolic (congestive) heart failure ICD Code: I50.32 Diagnosis: Secondary (8) Leukocytosis ICD Code: D72.829 Diagnosis: Principal (9) Smoker ICD Code: F17.200 Diagnosis: Principal Procedures none Brief History - From Admission History from patient, ER physician communication, and review of medical records. Patient reported that she came to the hospital because she has been coughing yesterday quite a lot. States that she was able to bring up some sputum which was brownish in color. Also reports a fever since Monday. She stated that [facility] and was prescribed antibiotic and steroids. She thinks the name is azithromycin and prednisone. However per records, it seems that she was prescribed Levaquin with prednisone. She reports that despite taking these medications, she continued to have persistent cough and yesterday she was having such bad coughing fits that she decided to come to hospital. She reports she's been homeless. She lives with her mother, her son, and a friend at a motel. She arrives to the emergency room by private vehicle. Upon arrival, patient was found to be hypoxic with O2 sat in the 70s on room air. Patient admits that she has not been taking her medications since discharge from hospital because of her being homeless. She reports she does not take any diuretics. Apart from the above, patient denies any urinary burning or pain on urination. denies any blood in her stool or in her urine. CBC/BMP: 07/23/16 0626 07/23/16 0626 Significant Findings Laboratory Tests Test 07/21/16 07/22/16 07/23/16 07:34 10:22 06:26 White Blood Count 14.2 TH/MM3 15.9 TH/MM3 15.5 TH/MM3 (4.0-11.0) (4.0-11.0) (4.0-11.0) Mean Corpuscular Hemoglobin 25.8 PG 26.3 PG 26.4 PG (27.0-34.0) (27.0-34.0) (27.0-34.0) Mean Corpuscular Hemoglobin 31.3 % Concent (32.0-36.0) Chloride Level 95 MEQ/L 94 MEQ/L 97 MEQ/L (98-107) (98-107) (98-107) Carbon Dioxide Level 36.1 MEQ/L 34.0 MEQ/L (21.0-32.0) (21.0-32.0) Blood Urea Nitrogen 31 MG/DL (7-18) 31 MG/DL (7-18) 32 MG/DL (7-18) Creatinine 1.21 MG/DL 1.21 MG/DL 1.16 MG/DL (0.50-1.00) (0.50-1.00) (0.50-1.00) Estimat Glomerular Filtration 60 ML/MIN (>89) 60 ML/MIN (>89) 63 ML/MIN (>89) Rate Random Glucose 114 MG/DL 137 MG/DL (74-106) (74-106) Magnesium Level 2.7 MG/DL 2.6 MG/DL (1.5-2.5) (1.5-2.5) Red Blood Count 5.77 MIL/MM3 5.33 MIL/MM3 (4.00-5.30) (4.00-5.30) Hematocrit 47.2 % (35.0-46.0) Platelet Count 472 TH/MM3 (150-450) Neutrophils (%) (Auto) 80.8 % (16.0-70.0) Lymphocytes (%) (Auto) 8.1 % (9.0-44.0) Monocytes (%) (Auto) 10.5 % 17.3 % (0.0-8.0) (0.0-8.0) Neutrophils # (Auto) 12.8 TH/MM3 9.3 TH/MM3 (1.8-7.7) (1.8-7.7) Monocytes # (Auto) 1.7 TH/MM3 2.7 TH/MM3 (0-0.9) (0-0.9) Phosphorus Level 2.2 MG/DL (2.5-4.9) Aspartate Amino Transf 6 U/L (15-37) 9 U/L (15-37) (AST/SGOT) Albumin 2.9 GM/DL (3.4-5.0) Imaging Last Impressions Chest X-Ray 07/18/16 2240 Signed Impressions: Service Date/Time: Monday, July 18, 2016 23:11 - CONCLUSION: No significant change in the bilateral patchy pulmonary opacities. Horacio Simpson MD PE at Discharge GENERAL: This is a well-nourished, well-developed patient, resting in bed, no respiratory distress observed. SKIN: No rashes, ecchymoses or lesions. Cool and dry. HEAD: Atraumatic. Normocephalic. No temporal or scalp tenderness. EYES: No scleral icterus. No injection or drainage. Proptosis ENT: Nose without bleeding, purulent drainage or septal hematoma. Airway patent. NECK: Trachea midline. No JVD Supple, nontender, no meningeal signs. CARDIOVASCULAR: Tachycardic without murmurs, gallops, or rubs. RESPIRATORY: Clear to auscultation bilaterally. Equal air entry bilaterally. GASTROINTESTINAL: Abdomen soft, non-tender, nondistended. No guarding. Obese. MUSCULOSKELETAL: Extremities without clubbing, cyanosis, or edema. NEUROLOGICAL: Awake and alert. Motor and sensory grossly within normal limits. Normal speech. PSYCH: Flattened affect. Pt update on day of discharge Patient denies cp, sob much improved. Denies fevers/chills/ Failed o2 walk test and will need home oxygen. Family member will take her home today. Hospital Course (1) Sepsis Present on admission. Patient presented with leukocytosis and tachycardia. Patient also with significant hypercapnic hypoxemic respiratory failure. Patient failed outpatient therapy for pneumonia with prednisone and azithromycin. Continue IV antibiotics. Continue IV Solu Medrol 40 mg IV every 8 hours, oxygen as needed, incentive spirometry. Patient initially was started on IV aztreonam, which was discontinued at the patient was then started on doxycycline IV. However this would not provide adequate coverage for hospital-acquired pneumonia. The patient had risk factors for multidrug resistant and has received antibiotics within the past 90 days. I will discontinue IV doxycycline on IV aztreonam, Levaquin IV and IV vancomycin. Neurologic consulted and followed patient throughout hospitalization. The risks were held since patient became hypotensive with systolic blood pressure in the 90s and patient was given IV normal saline bolus after which blood pressure improved. All cultures negative to date. Sputum culture showed heavy growth of normal respiratory geetha. Sepsis eventually resolved. WBC is still elevated at 15.9, however the patient is on IV steroids, nontoxic and afebrile. Discontinue IV vancomycin and IV aztreonam, continue Levaquin IV. Hemispheres were tapered. Patient discharged home on oral Levaquin and prednisone steroid taper. (2) Respiratory failure with hypoxia and hypercapnia Due to pneumonia and COPD exacerbation. Respiratory failure much improved now patient on 4 L nasal cannula Continue oxygen as needed to keep oxygen saturation more than 92% influenza A and B negative. (3) HCAP (healthcare-associated pneumonia) As shown on chest x-ray detailed above. Dc on Levaquin. (4) Sarcoidosis Seems to be stable. Pulmonary following. (5) Steroid-induced hyperglycemia Plan: Continue SSI with insulin NovoLog and monitor Accu-Cheks. Blood sugars remained stable during hospitalization. (6) STEPHANIE (acute kidney injury) Plan: Creatinine elevated at 1.6 on admission. Attention improved after IV fluid administration. BUN/creatinine monitor throughout hospital stay as well as strict input and output. Creatinine trending down on discharge down to 1.1. (7) Chronic diastolic (congestive) heart failure Patient carbon dioxide trending up likely due to contraction alkalosis. I will discontinue diuretics for now and give IV fluids. (8) Leukocytosis Leukocytosis likely secondary to sepsis secondary to pneumonia and COPD exacerbation as detailed above. Continue to monitor WBC. (9) Smoker Advised smoking cessation. Continue nicotine patch. GI prophylaxis: PPI. DVT prophylaxis: SCDs, Lovenox subcutaneously. Pt Condition on Discharge: Stable Discharge Disposition: Discharge Home Discharge Time: > 30 minutes Discharge Instructions DIET: Follow Instructions for: Heart Healthy Diet Activities you can perform: Regular-No Restrictions Activities to Avoid: Prolonged Standing, Strenuous Activity Follow up Referrals: PCP Follow-up Pulmonology - 2 Weeks with Kristofer Clifford MD New Medications: Ipratropium-Albuterol Neb (Duoneb) 0.5-2.5 Mg/3 Ml Neb 1 NEBULE INH Q4HR NEB Breathing Treatment #180 Ref 0 NEBULE Levofloxacin (Levofloxacin) 500 Mg Tab 500 MG PO DAILY Infection #5 Ref 0 TAB Nebulizer (Nebulizer) 1 Mis Mis 1 EA .ROUTE DIRECTED Breathing Treatment #1 Ref 0 EA Nicotine Patch (Nicoderm CQ Patch) 14 Mg/24 Hr Patch 14 MG T-DERMAL DAILY Smoking Cessation #30 Ref 0 PATCH Oxygen tank (Oxygen tank) 1 Ea Tank 2 LITER BERTIN.CANULA CONTINUOUS Oxygen Concentrator Portable Gaseous 2 L/min via Nasal Cannula Continuous For 99 months HYPOXEMIA PREVENTION #2 CYLINDER Prednisone (Prednisone) 20 Mg Tab 40 MG PO DAILY Take 40 mg (2 tablets) daily for 5 days Inflammation #10 Ref 0 TAB Salmeterol Inh (Serevent Diskus Inh) 50 Mcg/Act Aero 50 MCG INH BID Shortness of Breath #1 Ref 0 INHALER Continued Medications: Acetaminophen (Tylenol) 325 Mg Tab 650 MG PO Q4H PRN PAIN SCALE 1 TO 4 Days 30 TAB Citalopram Hydrobromide (Celexa 20 Mg Tab) 20 Mg Tab 20 MG PO DAILY #30 Ref 0 TAB Ferrous Sulfate (Ferrous Sulfate) 325 Mg Tab 325 MG PO BID@12,17 #60 Ref 0 TAB Furosemide (Lasix 20 Mg Tab) 20 Mg Tab 20 MG PO BID@09,18 #60 TAB Gabapentin (Neurontin) 100 Mg Cap 200 MG PO BID #120 CAP Hydrocodone/Acetaminophen 7.5 mg/325 mg (Hydrocodone/Acetaminophen 7.5 mg/325 mg ) 1 Tab 1 TAB PO Q6H PRN Pain 6-10 #30 TAB Multivitamins/Minerals Therap (Thera M Plus) 1 Tab Tab 1 TAB PO DAILY #30 TAB Pantoprazole Sodium (Protonix) 40 Mg Tab 40 MG PO DAILY #30 TAB Potassium Chloride (Kcl 20 Meq Tab) 20 Meq Tabcr 20 MEQ PO Q12HR #60 TAB.SR Potassium Chloride (Klor-Con 10) 10 Meq Tab 10 MEQ PO DAILY #30 TAB Risperidone (Risperdal) 1 Mg Tab 3 MG PO HS #90 TAB Trazodone Hcl (Desyrel 100 Mg Tab) 100 Mg Tab 100 MG PO HS #30 TAB Gilbert Moser,Mario MD July 23, 2016 14:15
[2016-07-23] MEDS: traZODone HCL 50 MG TAB PO SCH (19:40)
[2016-07-23] MEDS: risperiDONE 3 MG TAB PO SCH (19:40)
[2016-07-24] VITALS: BP 114/63; PULSE 101; RESP 18; TEMP 97.7; O2SAT 93
[2016-07-24 04:00] VITALS: BP 92/61; PULSE 102; RESP 18; TEMP 96.7; O2SAT 93
[2016-07-24] MEDS: CHLORHEXIDINE GLUCONATE 2 % 1 PACK (2 CLOTHS) TOP SCH (04:00)
[2016-07-24] MEDS: INSULIN ASPART SUPPLEMENTAL SCALE SQ SCH ×4 (05:33→21:00)
[2016-07-24] MEDS: HEPARIN SODIUM - SQ 10,000 UNITS/ML VIAL SQ SCH ×4 (05:33→22:01)
[2016-07-24 07:50] VITALS: BP 134/77; PULSE 100; RESP 20; TEMP 97.6; O2SAT 95
[2016-07-24] MEDS: GABAPENTIN 100 MG CAP PO SCH ×2 (09:00→22:02)
[2016-07-24] MEDS: SODIUM CHLORIDE 0.9% FLUSH 10 ML FLUSH IV FLUSH SCH ×2 (09:00→22:01)
[2016-07-24] MEDS: methylPREDNISolone SOD SUCC 40 MG/1 ML VIAL IV PUSH SCH (09:00)
[2016-07-24] MEDS: CITALOPRAM HYDROBROMIDE 20 MG TAB PO SCH (09:00)
[2016-07-24] MEDS: REMOVE OLD PATCH T-DERMAL SCH (09:00)
[2016-07-24] MEDS: NICOTINE 21 MG/24 HR PATCH T-DERMAL SCH (09:00)
[2016-07-24] MEDS: PANTOPRAZOLE SOD 40 MG DELAYED RELEASE TAB PO SCH (09:00)
[2016-07-24] MEDS: LEVOFLOXACIN 750 MG PREMIX INJ 150 ML IV SCH (11:00)
[2016-07-24 11:50] VITALS: BP 104/58; PULSE 111; RESP 20; TEMP 98.2; O2SAT 94
--- NOTE | 2016-07-24 13:52 | HHI.PR ---
Subjective Remarks c/o pain in right upper arm denies cp/sob denies fevers/chills no cough as per RN patient refusing labwork, IV, accuchecks Objective Vitals Vital Signs Date Time Temp Pulse Resp B/P Pulse Ox O2 Delivery O2 Flow Rate FiO2 07/24/16 11:50 98.2 111 20 104/58 94 07/24/16 07:50 97.6 100 20 134/77 95 07/24/16 04:00 96.7 102 18 92/61 93 07/24/16 00:00 97.7 101 18 114/63 93 07/23/16 20:00 98.2 110 17 123/70 92 07/23/16 16:00 97.3 75 16 104/84 94 I/O 07/23/16 07/23/16 07/23/16 07/24/16 07/24/16 07/24/16 06:59 14:59 22:59 06:59 14:59 22:59 Intake Total 720 ml 600 ml 480 ml 240 ml Balance 720 ml 600 ml 480 ml 240 ml Intake Oral 720 ml 600 ml 480 ml 240 ml # Voids 3 2 2 1 # Bowel Movements 0 0 0 Result Diagram: 07/23/1626 07/23/16625 Imaging Last Impressions Chest X-Ray 07/18/16 2240 Signed Impressions: Service Date/Time: Monday, July 18, 2016 23:11 - CONCLUSION: No significant change in the bilateral patchy pulmonary opacities. Horacio Simpson MD Objective Remarks GENERAL: This is a well-nourished, well-developed patient, resting in bed, no respiratory distress observed. SKIN: No rashes, ecchymoses or lesions. Cool and dry. HEAD: Atraumatic. Normocephalic. No temporal or scalp tenderness. EYES: No scleral icterus. No injection or drainage. Proptosis ENT: Nose without bleeding, purulent drainage or septal hematoma. Airway patent. NECK: Trachea midline. No JVD Supple, nontender, no meningeal signs. CARDIOVASCULAR: Tachycardic without murmurs, gallops, or rubs. RESPIRATORY: Clear to auscultation bilaterally. Equal air entry bilaterally. GASTROINTESTINAL: Abdomen soft, non-tender, nondistended. No guarding. Obese. MUSCULOSKELETAL: Extremities without clubbing, cyanosis, or edema. NEUROLOGICAL: Awake and alert. Motor and sensory grossly within normal limits. Normal speech. PSYCH: Flattened affect. Procedures none Medications and IVs Current Medications Medications (Trade) Dose Ordered Sig/Enrique Route Start Time Stop Time Status Last Admin (NS Flush) 2 ml UNSCH PRN IV FLUSH 07/19/16 00:30 (NS Flush) 2 ml BID IV FLUSH 07/19/16 09:00 07/22/16 20:16 (Narcan Inj) 0.4 mg UNSCH PRN IV 07/19/16 00:30 Miscellaneous Information 1 Q361D XX 07/19/16 02:00 07/19/16 02:00 (Chlorhexidine 2% Cloth) Taper DAILY@04 TOP 07/19/16 04:00 07/15/17 03:59 07/20/16 04:00 (Chlorhexidine 2% Cloth) 3 pack UNSCH PRN TOP 07/19/16 02:00 (Heparin Inj) 5,000 units Q8HR SQ 07/19/16 14:00 07/22/16 14:20 (Protonix) 40 mg DAILY PO 07/19/16 09:00 07/24/16 09:00 (Desyrel) 50 mg HS PO 07/19/16 21:00 07/23/16 19:40 (Tylenol) 650 mg Q4H PRN PO 07/19/16 17:45 07/19/16 18:28 (Roxicodone) 5 mg Q4H PRN PO 07/19/16 17:45 07/24/16 09:50 (risperDAL) 1.5 mg HS PO 07/20/16 21:00 07/23/16 19:40 (CeleXA) 20 mg DAILY PO 07/20/16 10:30 07/24/16 09:00 (Neurontin) 200 mg BID PO 07/20/16 10:30 07/24/16 09:00 (Pill Splitter) 1 ea UNSCH PRN OTHER 07/20/16 10:30 Benzonatate 200 mg 200 mg TID PRN PO 07/20/16 15:45 07/20/16 17:33 (Levaquin 750 Mg Premix Inj) 150 ml @ 100 mls/hr Q24H IV 07/21/16 11:00 07/22/16 11:51 (D50w (Vial) Inj) 50 ml UNSCH PRN IV 07/21/16 10:45 (Glucagon Inj) 1 mg UNSCH PRN OTHER 07/21/16 10:45 (Habitrol 21 Mg Patch.24 Hr) 1 patch DAILY T-DERMAL 07/21/16 10:45 07/24/16 09:00 Miscellaneous Information 1 DAILY T-DERMAL 07/22/16 09:00 07/24/16 09:00 (Leith Emile Huntington) 2 spray Q4H PRN EACH NARE 07/21/16 19:45 07/21/16 22:48 (SoluMEDROL INJ) 40 mg DAILY IV PUSH 07/23/16 09:00 Urinary Catheter: No Vascular Central Line Catheter: No A/P Problem List: (1) Sepsis ICD Code: A41.9 Status: Acute Plan: Present on admission. Patient presented with leukocytosis and tachycardia. Patient also with significant hypercapnic hypoxemic respiratory failure. Patient failed outpatient therapy for pneumonia with prednisone and azithromycin. Continue IV antibiotics. Continue IV Solu Medrol 40 mg IV every 8 hours, oxygen as needed, incentive spirometry. Patient initially was started on IV aztreonam, which was discontinued at the patient was then started on doxycycline IV. However this would not provide adequate coverage for hospital-acquired pneumonia. The patient has risk factors for multidrug resistant and has received antibiotics within the past 90 days. I will discontinue IV doxycycline on IV aztreonam, Levaquin IV and IV vancomycin. Appreciate pulmonology consultation and recommendations. I will give a bolus of IV normal saline, since patient was on diuretics and is currently hypotensive with systolic blood pressure in the 90s. Hold diuretics for now. All cultures negative to date. Sputum culture showed heavy growth of normal respiratory geetha. Specimens improving, WBC is still elevated at 15.9, however the patient is on IV steroids, nontoxic and afebrile. Discontinue IV vancomycin and IV aztreonam , continue Levaquin IV. DC Solumedrol and start prednisone taper. (2) Respiratory failure with hypoxia and hypercapnia ICD Code: J96.91 Status: Resolved Plan: Due to pneumonia and COPD exacerbation. Respiratory failure much improved now patient on 4 L nasal cannula Continue oxygen as needed to keep oxygen saturation more than 92% influenza A and B negative, sputum culture negative. Patient failed o2 walk test - will need home O2. I will repeat Restoril walk test (3) HCAP (healthcare-associated pneumonia) ICD Code: J18.9 Status: Acute Plan: As shown on chest x-ray detailed above. Treated initially with IV doxycycline. This was discontinued and the patient was started on IV vancomycin, IV Levaquin, and Iv Aztreonam. IV Aztreonam and IV aztreonam discontinued on 07/22 after blood cultures negative 4. IV Levaquin continued. 07/24 discontinue IV Levaquin and switch to oral Levaquin. (4) Sarcoidosis ICD Code: D86.9 Status: Chronic Plan: Seems to be stable. Pulmonary following. (5) Steroid-induced hyperglycemia ICD Code: R73.9 Status: Acute Plan: Continue SSI with insulin NovoLog and monitor Accu-Cheks. Blood sugars are stable. 07/24 Patient refusing accuchecks and SSI with coverage. (6) STEPHANIE (acute kidney injury) ICD Code: N17.9 Status: Acute Plan: Creatinine elevated at 1.6 on admission. Creatinine trending down. Continue to monitor BUN/creatinine, strict I's and O's. Attending being monitored and trending down. 1.1 on 07/23. (7) Chronic diastolic (congestive) heart failure ICD Code: I50.32 Status: Chronic Plan: Seems to be stable at this moment. Patient carbon dioxide trending up likely due to contraction alkalosis. Diuretics held. (8) Leukocytosis ICD Code: D72.829 Status: Acute Plan: Leukocytosis likely secondary to sepsis secondary to pneumonia and COPD exacerbation as detailed above. WBC still elevated but patient afebrile and nontoxic. (9) Smoker ICD Code: F17.200 Status: Chronic Plan: Advises smoking cessation. Continue nicotine patch. Assessment and Plan GI prophylaxis: PPI. DVT prophylaxis: SCDs, Lovenox subcutaneously. Discharge Planning Discharge when home o2 arranged. Initially patient was going to be discharged to her aunts home, however as per RN, the patient's aunt is not longer to receive her. Discharge pending placement as well. Problem Qualifiers (1) Sepsis: Qualified Code: A41.9 - Sepsis, due to unspecified organism (2) Respiratory failure with hypoxia and hypercapnia: Qualified Code: J96.01 - Acute respiratory failure with hypoxia and hypercapnia (3) Leukocytosis: Qualified Code: D72.829 - Leukocytosis, unspecified type Mario Cheeny MD July 24, 2016 13:52
[2016-07-24 15:50] VITALS: BP 110/64; PULSE 107; RESP 20; TEMP 97; O2SAT 95
[2016-07-24 20:00] VITALS: BP 105/49; PULSE 104; RESP 18; TEMP 97.8; O2SAT 94
[2016-07-24] MEDS: risperiDONE 3 MG TAB PO SCH (22:02)
[2016-07-24] MEDS: traZODone HCL 50 MG TAB PO SCH (22:03)
[2016-07-25] VITALS (7 sets, daily range): BP systolic 106–114; BP diastolic 54–74; PULSE 90–113; RESP 18–21; TEMP 97.6–98.4; O2SAT 93–96
[2016-07-25] MEDS: CHLORHEXIDINE GLUCONATE 2 % 1 PACK (2 CLOTHS) TOP SCH (04:00)
[2016-07-25] MEDS: HEPARIN SODIUM - SQ 10,000 UNITS/ML VIAL SQ SCH ×3 (05:11→20:00)
[2016-07-25] MEDS: INSULIN ASPART SUPPLEMENTAL SCALE SQ SCH ×4 (05:11→20:00)
[2016-07-25] MEDS: SODIUM CHLORIDE 0.9% FLUSH 10 ML FLUSH IV FLUSH SCH ×2 (09:00→19:48)
[2016-07-25] MEDS: methylPREDNISolone SOD SUCC 40 MG/1 ML VIAL IV PUSH SCH (09:00)
[2016-07-25] MEDS: REMOVE OLD PATCH T-DERMAL SCH (09:00)
[2016-07-25] MEDS: NICOTINE 21 MG/24 HR PATCH T-DERMAL SCH (09:06)
[2016-07-25] MEDS: CITALOPRAM HYDROBROMIDE 20 MG TAB PO SCH (09:06)
[2016-07-25] MEDS: GABAPENTIN 100 MG CAP PO SCH ×2 (09:06→20:02)
[2016-07-25] MEDS: PANTOPRAZOLE SOD 40 MG DELAYED RELEASE TAB PO SCH (09:06)
[2016-07-25] MEDS: LEVOFLOXACIN 500 MG TAB PO SCH (09:06)
[2016-07-25] MEDS: predniSONE 20 MG TAB PO SCH (11:00)
--- NOTE | 2016-07-25 17:50 | HHI.PR ---
Subjective Remarks Deferred entry - patient seen earlier at 10:50 am Patient denies cp/sob refusing fingersticks refusing prednisone Objective Vitals Vital Signs Date Time Temp Pulse Resp B/P Pulse Ox O2 Delivery O2 Flow Rate FiO2 07/25/16 16:42 97.6 92 20 106/59 94 07/25/16 12:42 98.3 113 21 114/74 96 07/25/16 08:38 95 07/25/16 08:36 98.1 90 20 113/74 95 07/25/16 04:00 98.3 93 18 114/74 93 07/25/16 00:00 97.6 100 19 108/54 94 07/24/16 21:19 21 07/24/16 20:00 97.8 104 18 105/49 94 I/O 07/24/16 07/24/16 07/24/16 07/25/16 07/25/16 07/25/16 06:59 14:59 22:59 06:59 14:59 22:59 Intake Total 240 ml 2720 ml 480 ml 720 ml 480 ml Balance 240 ml 2720 ml 480 ml 720 ml 480 ml Intake Oral 240 ml 2720 ml 480 ml 720 ml 480 ml # Voids 1 8 3 3 2 # Bowel Movements 0 4 0 0 Result Diagram: 07/23/16 0626 07/23/16 06 Imaging Last Impressions Chest X-Ray 07/18/16 2240 Signed Impressions: Service Date/Time: Monday, July 18, 2016 23:11 - CONCLUSION: No significant change in the bilateral patchy pulmonary opacities. Horacio Simpson MD Objective Remarks GENERAL: This is a well-nourished, well-developed patient, resting in bed, no respiratory distress observed. SKIN: No rashes, ecchymoses or lesions. Cool and dry. HEAD: Atraumatic. Normocephalic. No temporal or scalp tenderness. EYES: No scleral icterus. No injection or drainage. Proptosis ENT: Nose without bleeding, purulent drainage or septal hematoma. Airway patent. NECK: Trachea midline. No JVD Supple, nontender, no meningeal signs. CARDIOVASCULAR: Tachycardic without murmurs, gallops, or rubs. RESPIRATORY: Clear to auscultation bilaterally. Equal air entry bilaterally. GASTROINTESTINAL: Abdomen soft, non-tender, nondistended. No guarding. Obese. MUSCULOSKELETAL: Extremities without clubbing, cyanosis, or edema. NEUROLOGICAL: Awake and alert. Motor and sensory grossly within normal limits. Normal speech. PSYCH: Flattened affect. Procedures none Medications and IVs Current Medications Medications (Trade) Dose Ordered Sig/Enrique Route Start Time Stop Time Status Last Admin (NS Flush) 2 ml UNSCH PRN IV FLUSH 07/19/16 00:30 (NS Flush) 2 ml BID IV FLUSH 07/19/16 09:00 07/24/16 22:01 (Narcan Inj) 0.4 mg UNSCH PRN IV 07/19/16 00:30 Miscellaneous Information 1 Q361D XX 07/19/16 02:00 07/19/16 02:00 (Chlorhexidine 2% Cloth) Taper DAILY@04 TOP 07/19/16 04:00 07/15/17 03:59 07/20/16 04:00 (Chlorhexidine 2% Cloth) 3 pack UNSCH PRN TOP 07/19/16 02:00 (Heparin Inj) 5,000 units Q8HR SQ 07/19/16 14:00 07/22/16 14:20 (Protonix) 40 mg DAILY PO 07/19/16 09:00 07/25/16 09:06 (Desyrel) 50 mg HS PO 07/19/16 21:00 07/24/16 22:03 (Tylenol) 650 mg Q4H PRN PO 07/19/16 17:45 07/19/16 18:28 (Roxicodone) 5 mg Q4H PRN PO 07/19/16 17:45 07/25/16 12:07 (risperDAL) 1.5 mg HS PO 07/20/16 21:00 07/24/16 22:02 (CeleXA) 20 mg DAILY PO 07/20/16 10:30 07/25/16 09:06 (Neurontin) 200 mg BID PO 07/20/16 10:30 07/25/16 09:06 (Pill Splitter) 1 ea UNSCH PRN OTHER 07/20/16 10:30 (Tessalon) 200 mg TID PRN PO 07/20/16 15:45 07/20/16 17:33 (D50w (Vial) Inj) 50 ml UNSCH PRN IV 07/21/16 10:45 (Glucagon Inj) 1 mg UNSCH PRN OTHER 07/21/16 10:45 (Habitrol 21 Mg Patch.24 Hr) 1 patch DAILY T-DERMAL 07/21/16 10:45 07/25/16 09:06 Miscellaneous Information 1 DAILY T-DERMAL 07/22/16 09:00 07/25/16 09:00 ([place]) 2 spray Q4H PRN EACH NARE 07/21/16 19:45 07/21/16 22:48 (Levaquin) 500 mg DAILY PO 07/25/16 09:00 07/25/16 09:06 (Deltasone) 40 mg DAILY PO 07/25/16 11:00 Urinary Catheter: No Vascular Central Line Catheter: No A/P Problem List: (1) Sepsis ICD Code: A41.9 Status: Acute (2) Respiratory failure with hypoxia and hypercapnia ICD Code: J96.91 Status: Resolved (3) HCAP (healthcare-associated pneumonia) ICD Code: J18.9 Status: Acute (4) Sarcoidosis ICD Code: D86.9 Status: Chronic (5) Steroid-induced hyperglycemia ICD Code: R73.9 Status: Acute (6) STEPHANIE (acute kidney injury) ICD Code: N17.9 Status: Acute (7) Chronic diastolic (congestive) heart failure ICD Code: I50.32 Status: Chronic (8) Leukocytosis ICD Code: D72.829 Status: Acute (9) Smoker ICD Code: F17.200 Status: Chronic Assessment and Plan (1) Sepsis Plan: Present on admission. Patient presented with leukocytosis and tachycardia. Patient also with significant hypercapnic hypoxemic respiratory failure. Patient failed outpatient therapy for pneumonia with prednisone and azithromycin. Continue IV antibiotics. Continue IV Solu Medrol 40 mg IV every 8 hours, oxygen as needed, incentive spirometry. Patient initially was started on IV aztreonam, which was discontinued at the patient was then started on doxycycline IV. However this would not provide adequate coverage for hospital-acquired pneumonia. The patient has risk factors for multidrug resistant and has received antibiotics within the past 90 days. I will discontinue IV doxycycline on IV aztreonam, Levaquin IV and IV vancomycin. Appreciate pulmonology consultation and recommendations. I will give a bolus of IV normal saline, since patient was on diuretics and is currently hypotensive with systolic blood pressure in the 90s. Hold diuretics for now. All cultures negative to date. Sputum culture showed heavy growth of normal respiratory geetha. Specimens improving, WBC is still elevated at 15.9, however the patient is on IV steroids, nontoxic and afebrile. Discontinue IV vancomycin and IV aztreonam , continue Levaquin IV. DC Solumedrol and start prednisone taper. (2) Respiratory failure with hypoxia and hypercapnia Plan: Due to pneumonia and COPD exacerbation. Respiratory failure much improved now patient on 4 L nasal cannula Continue oxygen as needed to keep oxygen saturation more than 92% influenza A and B negative, sputum culture negative. Patient failed o2 walk test - will need home O2. 07/25 I will repeat walk test. (3) HCAP (healthcare-associated pneumonia) Plan: As shown on chest x-ray detailed above. Treated initially with IV doxycycline. This was discontinued and the patient was started on IV vancomycin, IV Levaquin, and Iv Aztreonam. IV Aztreonam and IV aztreonam discontinued on 07/22 after blood cultures negative 4. IV Levaquin continued. 07/24 discontinue IV Levaquin and switch to oral Levaquin. (4) Sarcoidosis Plan: Seems to be stable. Pulmonary following. (5) Steroid-induced hyperglycemia Plan: Continue SSI with insulin NovoLog and monitor Accu-Cheks. Blood sugars are stable. 07/24 Patient refusing accuchecks and SSI with coverage. (6) STEPHANIE (acute kidney injury) Plan: Creatinine elevated at 1.6 on admission. Creatinine trending down. Continue to monitor BUN/creatinine, strict I's and O's. Attending being monitored and trending down. 1.1 on 07/23. (7) Chronic diastolic (congestive) heart failure Plan: Seems to be stable at this moment. Patient carbon dioxide trending up likely due to contraction alkalosis. Diuretics held. (8) Leukocytosis Plan: Leukocytosis likely secondary to sepsis secondary to pneumonia and COPD exacerbation as detailed above. WBC still elevated but patient afebrile and nontoxic. (9) Smokernic Plan: Advises smoking cessation. Continue nicotine patch. GI prophylaxis: PPI. DVT prophylaxis: SCDs, Lovenox subcutaneously. Discharge Planning Discharge when home o2 arranged. Initially patient was going to be discharged to her aunts home, however as per RN, the patient's aunt is not longer to receive her. Discharge pending placement as well. Problem Qualifiers (1) Sepsis: Qualified Code: A41.9 - Sepsis, due to unspecified organism (2) Respiratory failure with hypoxia and hypercapnia: Qualified Code: J96.01 - Acute respiratory failure with hypoxia and hypercapnia (3) Leukocytosis: Qualified Code: D72.829 - Leukocytosis, unspecified type Mario Cheney MD July 25, 2016 17:50
--- NOTE | 2016-07-25 19:04 | HHI.PR ---
Subjective Remarks 41 YO AA female with Hypercapnoic RF, weaned to NC Mild sob , no wheezing no Fever Breathing better Ambulates Objective Vital Signs Vital Signs Date Time Temp Pulse Resp B/P Pulse Ox O2 Delivery O2 Flow Rate FiO2 07/25/16 16:42 97.6 92 20 106/59 94 07/25/16 12:42 98.3 113 21 114/74 96 07/25/16 08:38 95 07/25/16 08:36 98.1 90 20 113/74 95 07/25/16 04:00 98.3 93 18 114/74 93 07/25/16 00:00 97.6 100 19 108/54 94 07/24/16 21:19 21 07/24/16 20:00 97.8 104 18 105/49 94 I/O 07/24/16 07/24/16 07/24/16 07/25/16 07/25/16 07/25/16 07:00 15:00 23:00 07:00 15:00 23:00 Intake Total 240 ml 2720 ml 480 ml 720 ml 480 ml Balance 240 ml 2720 ml 480 ml 720 ml 480 ml Intake Oral 240 ml 2720 ml 480 ml 720 ml 480 ml # Voids 1 8 3 3 2 # Bowel Movements 0 4 0 0 Result Diagram: 07/23/1662507/23/16625 Objective Remarks GENERAL: WBWN female, NAD SKIN: Warm and dry. HEAD: Normocephalic. EYES: No scleral icterus. No injection or drainage. NECK: Supple, trachea midline. No JVD or lymphadenopathy. CARDIOVASCULAR: Regular rate and rhythm without murmurs, gallops, or rubs. RESPIRATORY: Breath sounds equal bilaterally. No accessory muscle use. GASTROINTESTINAL: Abdomen soft, non-tender, nondistended. MUSCULOSKELETAL: No cyanosis, or edema. BACK: Nontender without obvious deformity. No CVA tenderness. A/P Assessment and Plan Hypercapnoic RF, improved COPD exac Sarcoidosis ILD basal infilt Nicotine use PLAN: pred 40 mg daily and wean. Cont Abx Aerosol nebs Smoking cessation Wean 02 Saline NS Stable from pulm standpoint Kristofer Clifford MD July 25, 2016 19:04
[2016-07-25] MEDS: traZODone HCL 50 MG TAB PO SCH (20:02)
[2016-07-25] MEDS: risperiDONE 3 MG TAB PO SCH (20:02)
[2016-07-26] VITALS (8 sets, daily range): BP systolic 100–114; BP diastolic 55–64; PULSE 81–106; RESP 16–20; TEMP 96.8–98.3; O2SAT 91–100
[2016-07-26] MEDS: CHLORHEXIDINE GLUCONATE 2 % 1 PACK (2 CLOTHS) TOP SCH (03:36)
[2016-07-26] MEDS: HEPARIN SODIUM - SQ 10,000 UNITS/ML VIAL SQ SCH ×3 (05:18→20:10)
[2016-07-26] MEDS: INSULIN ASPART SUPPLEMENTAL SCALE SQ SCH (05:18)
--- NOTE | 2016-07-26 07:48 | HHI.PR ---
Subjective Remarks Patient seen for follow up sepsis. 07/26/16-patient seen this morning. No acute events overnight. Satting in the mid-90s on room air. Other vitals WNL. Patient wants to go home today, if possible. Apparently was living at her aunt's home previously, but this was sold and she has nowhere to go. Denies any F/C, CP, SOB. Objective Vitals Vital Signs Date Time Temp Pulse Resp B/P Pulse Ox O2 Delivery O2 Flow Rate FiO2 07/26/16 04:00 97.4 81 16 105/60 100 07/26/16 00:00 98.2 106 18 100/64 94 07/25/16 20:00 98.4 107 20 108/63 94 07/25/16 16:42 97.6 92 20 106/59 94 07/25/16 12:42 98.3 113 21 114/74 96 07/25/16 08:38 95 07/25/16 08:36 98.1 90 20 113/74 95 I/O 07/25/16 07/25/16 07/25/16 07/26/16 07/26/16 07/26/16 06:59 14:59 22:59 06:59 14:59 22:59 Intake Total 720 ml 480 ml 480 ml 960 ml Balance 720 ml 480 ml 480 ml 960 ml Intake Oral 720 ml 480 ml 480 ml 960 ml # Voids 3 2 2 4 # Bowel Movements 0 Result Diagram: 07/23/1626 07/23/16 06 Objective Remarks GENERAL: This is a well-nourished, well-developed patient, resting in bed, no respiratory distress observed. SKIN: No rashes, ecchymoses or lesions. Cool and dry. NECK: Trachea midline. No JVD Supple, nontender, no meningeal signs. CARDIOVASCULAR: RRR. No murmurs. RESPIRATORY: Clear to auscultation bilaterally. Equal air entry bilaterally. GASTROINTESTINAL: Abdomen soft, non-tender, nondistended. No guarding. Obese. MUSCULOSKELETAL: Extremities without clubbing, cyanosis, or edema. NEUROLOGICAL: Awake and alert. Motor and sensory grossly within normal limits. Normal speech. PSYCH: Flattened affect. Procedures none A/P Problem List: (1) Sepsis ICD Code: A41.9 Status: Acute (2) Respiratory failure with hypoxia and hypercapnia ICD Code: J96.91 Status: Resolved (3) HCAP (healthcare-associated pneumonia) ICD Code: J18.9 Status: Acute (4) Sarcoidosis ICD Code: D86.9 Status: Chronic (5) Steroid-induced hyperglycemia ICD Code: R73.9 Status: Acute (6) STEPHANIE (acute kidney injury) ICD Code: N17.9 Status: Acute (7) Chronic diastolic (congestive) heart failure ICD Code: I50.32 Status: Chronic (8) Leukocytosis ICD Code: D72.829 Status: Acute (9) Smoker ICD Code: F17.200 Status: Chronic Assessment and Plan (1) Sepsis Plan: Present on admission. Patient presented with leukocytosis and tachycardia. Patient also with significant hypercapnic hypoxemic respiratory failure. Patient failed outpatient therapy for pneumonia with prednisone and azithromycin. -Continue PO levaquin (07/24-) -Appreciate pulmonology consultation and recommendations. -All cultures negative to date. Sputum culture showed heavy growth of normal respiratory geetha. -WBC trending down. Still slightly elevated (15 on 07/23), likely 2/2 steroid use. -prednisone taper (2) Respiratory failure with hypoxia and hypercapnia Plan: Due to pneumonia and COPD exacerbation. -Respiratory failure much improved now patient on room air, satting in the mid 90s -Continue oxygen as needed to keep oxygen saturation more than 92% -influenza A and B negative, sputum culture negative. -Patient passed repeat walking home O2 test (3) HCAP (healthcare-associated pneumonia) Plan: As shown on chest x-ray detailed above. -Treated initially with IV doxycycline. This was discontinued and the patient was started on IV vancomycin, IV Levaquin, and Iv Aztreonam. IV Aztreonam and IV aztreonam discontinued on 07/22 after blood cultures negative 4. Switched to IV levaquin, which was changed to PO 07/24. (4) Sarcoidosis Plan: Seems to be stable. Pulmonary following. (5) Steroid-induced hyperglycemia Plan: Continue SSI with insulin NovoLog and monitor Accu-Cheks. Blood sugars have been in the low 100s. DC accucheks and ssi. (6) STEPHANIE (acute kidney injury) Plan: Creatinine elevated at 1.6 on admission. Down to 1.1 on 07/23. (7) Chronic diastolic (congestive) heart failure Plan: Seems to be stable at this moment. Patient carbon dioxide trending up likely due to contraction alkalosis. Diuretics held. (8) Leukocytosis Plan: Leukocytosis likely secondary to sepsis secondary to pneumonia and COPD exacerbation as detailed above. (9) Smoker Plan: Advises smoking cessation. Continue nicotine patch. GI prophylaxis: PPI. DVT prophylaxis: SCDs, heparin subcutaneously. Discharge Planning Plan for DC home as soon as today. Will need to discuss discharge plan with patient and CM. Problem Qualifiers (1) Sepsis: Qualified Code: A41.9 - Sepsis, due to unspecified organism (2) Respiratory failure with hypoxia and hypercapnia: Qualified Code: J96.01 - Acute respiratory failure with hypoxia and hypercapnia (3) Leukocytosis: Qualified Code: D72.829 - Leukocytosis, unspecified type Mark Nicholson MD R3 July 26, 2016 07:48 Mark Nicholson MD R3 July 26, 2016 07:48
--- NOTE | 2016-07-26 08:23 | HHI.DCPOC ---
Discharge Care Plan Diagnosis: (1) Sarcoidosis of lung (2) Pneumonia Goals to Promote Your Health * To prevent worsening of your condition and complications * To maintain your health at the optimal level Directions to Meet Your Goals Take your medications as prescribed Follow your dietary instruction Follow activity as directed Keep your appointments as scheduled Take your immunizations and boosters as scheduled If your symptoms worsen call your PCP, if no PCP go to Urgent Care Center or Emergency Room Smoking is Dangerous to Your Health. Avoid second hand smoke Call the 24-hour hour crisis hotline for domestic abuse at Mark Nicholson MD R3 July 26, 2016 08:23
[2016-07-26] MEDS: SODIUM CHLORIDE 0.9% FLUSH 10 ML FLUSH IV FLUSH SCH ×2 (09:00→20:08)
[2016-07-26] MEDS: NICOTINE 21 MG/24 HR PATCH T-DERMAL SCH (09:00)
[2016-07-26] MEDS: REMOVE OLD PATCH T-DERMAL SCH (09:00)
[2016-07-26] MEDS: CITALOPRAM HYDROBROMIDE 20 MG TAB PO SCH (09:31)
[2016-07-26] MEDS: LEVOFLOXACIN 500 MG TAB PO SCH (09:31)
[2016-07-26] MEDS: GABAPENTIN 100 MG CAP PO SCH ×2 (09:31→20:08)
[2016-07-26] MEDS: PANTOPRAZOLE SOD 40 MG DELAYED RELEASE TAB PO SCH (09:32)
[2016-07-26] MEDS: predniSONE 20 MG TAB PO SCH (09:33)
--- NOTE | 2016-07-26 18:50 | HHI.PR ---
Subjective Remarks 41 YO AA female with Hypercapnoic RF, weaned to NC Mild sob , no wheezing no Fever Breathing better Ambulates no new compalints Objective Vital Signs Vital Signs Date Time Temp Pulse Resp B/P Pulse Ox O2 Delivery O2 Flow Rate FiO2 07/26/16 16:21 98.3 97 20 114/55 93 07/26/16 13:06 93 Nasal Cannula 2.00 07/26/16 12:56 97.4 91 20 102/56 94 07/26/16 12:53 92 Nasal Cannula 2.00 07/26/16 12:52 2.00 07/26/16 08:52 96.8 102 20 110/63 91 07/26/16 04:00 97.4 81 16 105/60 100 07/26/16 00:00 98.2 106 18 100/64 94 07/25/16 20:00 98.4 107 20 108/63 94 I/O 07/25/16 07/25/16 07/25/16 07/26/16 07/26/16 07/26/16 06:59 14:59 22:59 06:59 14:59 22:59 Intake Total 720 ml 480 ml 480 ml 960 ml 800 ml Balance 720 ml 480 ml 480 ml 960 ml 800 ml Intake Oral 720 ml 480 ml 480 ml 960 ml 800 ml # Voids 3 2 2 4 2 # Bowel Movements 0 2 Result Diagram: 07/23/1662507/23/16625 Objective Remarks GENERAL: WBWN female, NAD SKIN: Warm and dry. HEAD: Normocephalic. EYES: No scleral icterus. No injection or drainage. NECK: Supple, trachea midline. No JVD or lymphadenopathy. CARDIOVASCULAR: Regular rate and rhythm without murmurs, gallops, or rubs. RESPIRATORY: Breath sounds equal bilaterally. No accessory muscle use. GASTROINTESTINAL: Abdomen soft, non-tender, nondistended. MUSCULOSKELETAL: No cyanosis, or edema. BACK: Nontender without obvious deformity. No CVA tenderness. A/P Assessment and Plan Hypercapnoic RF, improved COPD exac Sarcoidosis ILD basal infilt Nicotine use PLAN: pred 40 mg daily and wean. Cont Abx Aerosol nebs Smoking cessation Wean 02 Saline NS Stable from pulm standpoint DC plans underway for rehab Kristofer Clifford MD July 26, 2016 18:50
[2016-07-26] MEDS: risperiDONE 3 MG TAB PO SCH (20:09)
[2016-07-26] MEDS: traZODone HCL 50 MG TAB PO SCH (20:09)
[2016-07-27] VITALS: BP 94/61; PULSE 82; RESP 17; TEMP 97.6; O2SAT 96
[2016-07-27 04:00] VITALS: BP 99/65; PULSE 78; RESP 17; TEMP 97.2; O2SAT 96
[2016-07-27] MEDS: CHLORHEXIDINE GLUCONATE 2 % 1 PACK (2 CLOTHS) TOP SCH (04:00)
[2016-07-27] MEDS: HEPARIN SODIUM - SQ 10,000 UNITS/ML VIAL SQ SCH ×2 (05:00→14:10)
--- NOTE | 2016-07-27 07:48 | HHI.PR ---
Subjective Remarks In bed, awaiting for breakfast. Says she is having nonproductive cough. Overall improving. Plan for SNF. No chest pain. No sob, currently on NC. No fever or chills. Objective Vitals Vital Signs Date Time Temp Pulse Resp B/P Pulse Ox O2 Delivery O2 Flow Rate FiO2 07/27/16 04:00 97.2 78 17 99/65 96 07/27/16 00:00 97.6 82 17 94/61 96 07/26/16 21:40 95 Nasal Cannula 2.00 07/26/16 20:08 Nasal Cannula 2.00 07/26/16 20:00 97.3 95 17 102/56 95 07/26/16 16:21 98.3 97 20 114/55 93 07/26/16 13:06 93 Nasal Cannula 2.00 07/26/16 12:56 97.4 91 20 102/56 94 07/26/16 12:53 92 Nasal Cannula 2.00 07/26/16 12:52 2.00 07/26/16 08:52 96.8 102 20 110/63 91 I/O 07/26/16 07/26/16 07/26/16 07/27/16 07/27/16 07/27/16 07:00 15:00 23:00 07:00 15:00 23:00 Intake Total 960 ml 800 ml 240 ml Balance 960 ml 800 ml 240 ml Intake Oral 960 ml 800 ml 240 ml # Voids 4 2 3 # Bowel Movements 2 Result Diagram: 07/23/16 0626 07/23/16 0626 Imaging Last Impressions Chest X-Ray 07/18/16 2240 Signed Impressions: Service Date/Time: Monday, July 18, 2016 23:11 - CONCLUSION: No significant change in the bilateral patchy pulmonary opacities. Horacio Simpson MD Objective Remarks GENERAL: This is a well-nourished, well-developed patient, resting in bed, no respiratory distress observed. SKIN: No rashes, ecchymoses or lesions. Cool and dry. NECK: Trachea midline. No JVD Supple, nontender, no meningeal signs. CARDIOVASCULAR: RRR. No murmurs. RESPIRATORY: Clear to auscultation bilaterally. Equal air entry bilaterally. GASTROINTESTINAL: Abdomen soft, non-tender, nondistended. No guarding. Obese. MUSCULOSKELETAL: Extremities without clubbing, cyanosis, or edema. NEUROLOGICAL: Awake and alert. Motor and sensory grossly within normal limits. Normal speech. PSYCH: Flattened affect. Procedures none A/P Problem List: (1) Sepsis ICD Code: A41.9 Status: Acute (2) Respiratory failure with hypoxia and hypercapnia ICD Code: J96.91 Status: Resolved (3) HCAP (healthcare-associated pneumonia) ICD Code: J18.9 Status: Acute (4) Sarcoidosis ICD Code: D86.9 Status: Chronic (5) Steroid-induced hyperglycemia ICD Code: R73.9 Status: Acute (6) STEPHANIE (acute kidney injury) ICD Code: N17.9 Status: Acute (7) Chronic diastolic (congestive) heart failure ICD Code: I50.32 Status: Chronic (8) Leukocytosis ICD Code: D72.829 Status: Acute (9) Smoker ICD Code: F17.200 Status: Chronic Assessment and Plan (1) Sepsis Plan: Present on admission. Patient presented with leukocytosis and tachycardia. Patient also with significant hypercapnic hypoxemic respiratory failure. Patient failed outpatient therapy for pneumonia with prednisone and azithromycin. -Continue PO levaquin (07/24-) -Appreciate pulmonology consultation and recommendations. -All cultures negative to date. Sputum culture showed heavy growth of normal respiratory geetha. -WBC trending down. Still slightly elevated (15 on 07/23), likely 2/2 steroid use. -prednisone taper (2) Respiratory failure with hypoxia and hypercapnia Plan: Due to pneumonia and COPD exacerbation. -Respiratory failure much improved now patient on room air, satting in the mid 90s -Continue oxygen as needed to keep oxygen saturation more than 92% -influenza A and B negative, sputum culture negative. -Patient passed repeat walking home O2 test (3) HCAP (healthcare-associated pneumonia) Plan: As shown on chest x-ray detailed above. -Treated initially with IV doxycycline. This was discontinued and the patient was started on IV vancomycin, IV Levaquin, and Iv Aztreonam. IV Aztreonam and IV aztreonam discontinued on 07/22 after blood cultures negative 4. Switched to IV levaquin, which was changed to PO 07/24. (4) Sarcoidosis Plan: Seems to be stable. Pulmonary following. (5) Steroid-induced hyperglycemia Plan: Continue SSI with insulin NovoLog and monitor Accu-Cheks. Blood sugars have been in the low 100s. DC accucheks and ssi. (6) STEPHANIE (acute kidney injury) Plan: Creatinine elevated at 1.6 on admission. Down to 1.1 on 07/23. (7) Chronic diastolic (congestive) heart failure Plan: Seems to be stable at this moment. Patient carbon dioxide trending up likely due to contraction alkalosis. Diuretics held. (8) Leukocytosis Plan: Leukocytosis likely secondary to sepsis secondary to pneumonia and COPD exacerbation as detailed above. (9) Smoker Plan: Advises smoking cessation. Continue nicotine patch. GI prophylaxis: PPI. DVT prophylaxis: SCDs, heparin subcutaneously. Discharge Planning Plan for DC home. CM following for DC plan. Plan to DC to SNF. Problem Qualifiers (1) Sepsis: Qualified Code: A41.9 - Sepsis, due to unspecified organism (2) Respiratory failure with hypoxia and hypercapnia: Qualified Code: J96.01 - Acute respiratory failure with hypoxia and hypercapnia (3) Leukocytosis: Qualified Code: D72.829 - Leukocytosis, unspecified type Tracy Soto MD July 27, 2016 07:48
[2016-07-27 07:55] VITALS: O2SAT 92
[2016-07-27 08:00] VITALS: BP 96/58; PULSE 82; RESP 16; TEMP 97.8; O2SAT 96
[2016-07-27] MEDS: REMOVE OLD PATCH T-DERMAL SCH (08:39)
[2016-07-27] MEDS: LEVOFLOXACIN 500 MG TAB PO SCH (08:45)
[2016-07-27] MEDS: NICOTINE 21 MG/24 HR PATCH T-DERMAL SCH ×2 (08:45→11:00)
[2016-07-27] MEDS: SODIUM CHLORIDE 0.9% FLUSH 10 ML FLUSH IV FLUSH SCH (08:45)
[2016-07-27] MEDS: GABAPENTIN 100 MG CAP PO SCH (08:45)
[2016-07-27] MEDS: CITALOPRAM HYDROBROMIDE 20 MG TAB PO SCH (08:45)
[2016-07-27] MEDS: PANTOPRAZOLE SOD 40 MG DELAYED RELEASE TAB PO SCH (08:45)
[2016-07-27] MEDS: predniSONE 20 MG TAB PO SCH (08:45)
[2016-07-27 12:00] VITALS: BP 102/58; PULSE 94; RESP 18; TEMP 97.7; O2SAT 97
--- NOTE | 2016-07-27 15:50 | HHI.PR ---
Subjective Remarks 41 YO AA female with Hypercapnoic RF, weaned to NC Mild sob , no wheezing no Fever Breathing better Ambulates Objective Vital Signs Vital Signs Date Time Temp Pulse Resp B/P Pulse Ox O2 Delivery O2 Flow Rate FiO2 07/27/16 12:00 97.7 94 18 102/58 97 07/27/16 08:50 Nasal Cannula 2.00 07/27/16 08:00 97.8 82 16 96/58 96 07/27/16 07:55 92 Nasal Cannula 2.00 07/27/16 04:00 97.2 78 17 99/65 96 07/27/16 00:00 97.6 82 17 94/61 96 07/26/16 21:40 95 Nasal Cannula 2.00 07/26/16 20:08 Nasal Cannula 2.00 07/26/16 20:00 97.3 95 17 102/56 95 07/26/16 16:21 98.3 97 20 114/55 93 I/O 07/26/16 07/26/16 07/26/16 07/27/16 07/27/16 07/27/16 06:59 14:59 22:59 06:59 14:59 22:59 Intake Total 960 ml 800 ml 240 ml 960 ml Balance 960 ml 800 ml 240 ml 960 ml Intake Oral 960 ml 800 ml 240 ml 960 ml # Voids 4 2 3 # Bowel Movements 2 Result Diagram: 07/23/1662507/23/16625 Objective Remarks GENERAL: WBWN female, NAD SKIN: Warm and dry. HEAD: Normocephalic. EYES: No scleral icterus. No injection or drainage. NECK: Supple, trachea midline. No JVD or lymphadenopathy. CARDIOVASCULAR: Regular rate and rhythm without murmurs, gallops, or rubs. RESPIRATORY: Breath sounds equal bilaterally. No accessory muscle use. GASTROINTESTINAL: Abdomen soft, non-tender, nondistended. MUSCULOSKELETAL: No cyanosis, or edema. BACK: Nontender without obvious deformity. No CVA tenderness. A/P Assessment and Plan Hypercapnoic RF, improved COPD exac Sarcoidosis ILD basal infilt Nicotine use PLAN: PO Pred Cont Abx Aerosol nebs Smoking cessation Wean 02 Saline NS Stable from pulm standpoint [facility] Kristofer Clifford MD July 27, 2016 15:50
[2016-07-27 16:00] VITALS: BP 113/57; PULSE 98; RESP 18; TEMP 97.7; O2SAT 93
== END 2016-07-27 17:01 | DRG 871 ==
LOC: NEPE 22:20 → NEDA 07-19 00:23 → HIMW 07-19 01:30 → HOCA 07-20 13:46
PROVIDERS: ADMIT Hospitalist; ATTEND Hospitalist
PROC: 5A09357 Assistance with Respiratory Ventilation, Less than 24 Consecutive Hours, Continuous Positive Airway Pressure (ICD-10-PCS; principal; 2016-07-19)
DX: A41.9 Sepsis, unspecified organism (principal); J18.9 Pneumonia, unspecified organism; J96.91 Respiratory failure, unspecified with hypoxia; N17.9 Acute kidney failure, unspecified; J84.9 Interstitial pulmonary disease, unspecified; J96.92 Respiratory failure, unspecified with hypercapnia; J44.0 Chronic obstructive pulmonary disease with (acute) lower respiratory infection; Z68.41 Body mass index [BMI] 40.0-44.9, adult; D86.9 Sarcoidosis, unspecified; I50.32 Chronic diastolic (congestive) heart failure; J44.1 Chronic obstructive pulmonary disease with (acute) exacerbation; E66.01 Morbid (severe) obesity due to excess calories; R00.0 Tachycardia, unspecified; I10 Essential (primary) hypertension; F31.9 Bipolar disorder, unspecified; K21.9 Gastro-esophageal reflux disease without esophagitis; Z59.0 Homelessness; F17.210 Nicotine dependence, cigarettes, uncomplicated; T50.996A Underdosing of other drugs, medicaments and biological substances, initial encounter; Z91.138 Patient's unintentional underdosing of medication regimen for other reason; Y95 Nosocomial condition; R73.9 Hyperglycemia, unspecified; T38.0X5A Adverse effect of glucocorticoids and synthetic analogues, initial encounter; Z16.24 Resistance to multiple antibiotics; Z88.0 Allergy status to penicillin
CPT/HCPCS: 36600; 71010; 80048; 80053; 80076; 82805; 82948; 83605; 83735; 83880; 84100; 85007; 85025; 85027; 87040; 87070; 87205; 87500; 87641; 93005; 94002; 94150; 94620; 94640; 94664; 96365; 96368; 96375; J0456; J1644; J1650; J1815; J1940; J1956; J2920; J2930; J3370; J3475; J7030; J7050; J7512; J7613; J7644

== ENCOUNTER 2016-08-07 01:37 | Emergency (ER) | payer OTHER ==
[~2016-08-07 01:37] MED LIST changes: +IPRASOL INH; +LEVO500T3 PO; +NEBULIZER1 MI1; +NICO14DI4 T-DERMAL; +OXYGENTANK NAS.CANULA; +PRED20 PO; +SALM50I INH
[2016-08-07] MEDS ORDERED: RISP1TAB2 PO ×2 (03:05→03:50)
[2016-08-07] MEDS ORDERED: TRAZ50TA12 PO ×2 (03:05→03:50)
[2016-08-07] MEDS ORDERED: GABA300C5 PO ×2 (03:05→03:50)
== END 2016-08-07 01:40 | disposition left against medical advice (07) ==
LOC: NEPE 01:37
DX: R41.82 Altered mental status, unspecified (principal)
CPT/HCPCS: 99281

== ENCOUNTER 2016-08-07 01:55 | Emergency (ER) | payer OTHER ==
[2016-08-07 01:57] VITALS: BP 142/99; PULSE 131; RESP 20; TEMP 98.8; O2SAT 98
[2016-08-07] MEDS ORDERED: RISP1TAB2 PO ×2 (03:05→03:50)
[2016-08-07] MEDS ORDERED: GABA300C5 PO ×2 (03:05→03:50)
[2016-08-07] MEDS ORDERED: TRAZ50TA12 PO ×2 (03:05→03:50)
[2016-08-07 03:09] VITALS: BP 142/83; PULSE 109; RESP 14; O2SAT 96
[2016-08-07] MEDS ORDERED: MORPHINE SULFATE 4 MG/ML INJ IV PUSH ONE (03:45)
[2016-08-07] MEDS ORDERED: ONDANSETRON HCL 4 MG/2 ML VIAL IV PUSH ONE (03:45)
--- NOTE | 2016-08-07 03:54 | PD ---
HPI . Psychiatric illness Chief Complaint: Psychiatric Symptoms Time Seen by Provider: 02:57 Travel History International Travel<30 days: No Contact w/Intl Traveler<30days: No Traveled to known affect area: No History of Present Illness HPI Patient presents stating that she needs to get her psychiatric medications refilled. She states that she's been out of them for a while. She states that she is currently living on the streets. She would also like to have something for her headache. She was unable to further characterize her headache. PFSH Past Medical History Arthritis: No Asthma: No Autoimmune Disease: Yes ( SARCOIDOSIS) Blood Disorders: No Bipolar Disorder: Yes Anxiety: No Depression: No Heart Rhythm Problems: No Cancer: No Cardiovascular Problems: Yes High Cholesterol: No Chemotherapy: No Chest Pain: No Congestive Heart Failure: Yes COPD: No Cerebrovascular Accident: Yes Diabetes: No Diminished Hearing: No Endocrine: No Gastrointestinal Disorders: Yes GERD: Yes Genitourinary: No Hepatitis: No Hiatal Hernia: No Hypertension: Yes Immune Disorder: Yes Kidney Stones: No Medical other: Yes (LUPUS) Musculoskeletal: Yes Neurologic: No Psychiatric: Yes (Bipolar disorder) Reproductive: No Respiratory: Yes (Intersititial lung disease) Immunizations Current: No Migraines: No Pneumonia: Yes Radiation Therapy: No Renal Failure: No Schizophrenia: Yes Seizures: No Sickle Cell Disease: No Sleep Apnea: No Thyroid Disease: No Ulcer: No ?: Unknown : 2 Para: 2 Tubal Ligation: Yes Past Surgical History Abdominal Surgery: No AICD: No Arteriovenous Shunt: No Cardiac Surgery: No Ear Surgery: No Endocrine Surgery: No Eye Surgery: No Genitourinary Surgery: No Gynecologic Surgery: Yes (Tubal ligation) Insulin Pump: No Joint Replacement: No Oral Surgery: Yes (Tongue biopsy) Pacemaker: No Thoracic Surgery: Yes (Eight lung wedge resection 2011, Bronchospy 05/19) Other Surgery: Yes (right lung biopsy /bronchoscopy ) Social History Alcohol Use: No Tobacco Use: Yes (1PPD) Substance Use: No Allergies-Medications (Allergen,Severity, Reaction): Coded Allergies: Penicillin (Verified Allergy, Intermediate, Nausea/Vomiting, 08/07/16) Tramadol (Verified Allergy, Unknown, 08/07/16) SHAKES *MDRO Multi-Drug Resistant Organism (Verified Adverse Reaction, Unknown, ) 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 SKIN: Warm and dry. HEAD: Atraumatic. Normocephalic. Scalp is nontender. EYES: Pupils equal and round. Extraocular movements are intact. NECK: Trachea midline. Neck is supple. CARDIOVASCULAR: Regular rate and rhythm. RESPIRATORY: No accessory muscle use. MUSCULOSKELETAL: No obvious deformities. No edema. NEUROLOGICAL: Awake and alert. No obvious cranial nerve deficits. Motor grossly within normal limits. Normal speech. PSYCHIATRIC: Appropriate mood and affect; insight and judgment normal. She does not appear to have any distracting internal stimuli. She makes good eye contact with the examiner. Data Data Last Documented VS Vital Signs Date Time Temp Pulse Resp B/P Pulse Ox O2 Delivery O2 Flow Rate FiO2 08/07/16 03:09 109 14 142/83 96 Room Air 08/07/16 01:57 98.8 Orders Ondansetron Inj (Zofran Inj) (08/07/16 03:45) Morphine Inj (Morphine Inj) (08/07/16 03:45) [facility] Medical Decision Making Medical Screen Exam Complete: Yes Emergency Medical Condition: Yes Differential Diagnosis Differential diagnosis of psychosis includes but is not limited to schizophrenia , schizoaffective disorder, bipolar disorder, intoxication, substance abuse, dementia Narrative Course This patient presents stating that she needs to have her psychiatric medications refilled she is specifically requesting refills for trazodone, risperidone and gabapentin. I have written her prescriptions for these medications. Diagnosis Primary Impression: Psychiatric illness Patient Instructions: General Instructions Departure Forms: Tests/Procedures Scripts Gabapentin 300 Mg [id number] Mg PO BID #60 CAP Ref 0 Prov:Whitney Washington MD 08/07/16 Risperidone 1 Mg Tab1 Mg PO HS #30 TAB Ref 0 Prov:Whitney Washington MD 08/07/16 Trazodone 50 Mg [id number] Mg PO HS #30 TAB Ref 0 Prov:Whitney Washington MD 08/07/16 Disposition: 01 DISCHARGE HOME Condition: Stable Whitney Washington MD Aug 07, 2016 03:54
[2016-08-07] MEDS ORDERED: ACETAMINOPHEN 325 MG TAB PO ONE (04:00)
== END 2016-08-07 03:57 | disposition home or self-care (01) ==
LOC: NEPC 01:55
DX: F99 Mental disorder, not otherwise specified (principal); R51 Headache; I50.9 Heart failure, unspecified; I10 Essential (primary) hypertension; M32.9 Systemic lupus erythematosus, unspecified; F17.210 Nicotine dependence, cigarettes, uncomplicated; Z79.899 Other long term (current) drug therapy; Z86.73 Personal history of transient ischemic attack (TIA), and cerebral infarction without residual deficits
CPT/HCPCS: 99284